=== PATIENT | female | born 1945 | race Caucasian/White ===

== ENCOUNTER → 2020-01-24 15:41 | Outpatient (BNVA) | payer MEDICARE, SELFPAY | PROVIDERS: PCP Internal Medicine; Referring Provider Internal Medicine; Visit Provider Hospitalist | DX: J44.9 Chronic obstructive pulmonary disease, unspecified (principal); J96.11 Chronic respiratory failure with hypoxia; G47.33 Obstructive sleep apnea (adult) (pediatric); R91.1 Solitary pulmonary nodule; F51.01 Primary insomnia; Z99.81 Dependence on supplemental oxygen | CPT/HCPCS: 99212 ==

== ENCOUNTER 2020-05-19 09:38 | Outpatient (REF) | payer MEDICARE, SELFPAY ==
[2020-05-19 11:31] LABS: Estimated Average Glucose 137 mg/dL; Hemoglobin A1c % 6.4 %
[2020-05-19 11:50] LABS: Alanine Aminotransferase 15 U/L (0-31); Albumin Level 4.2 g/dL (3.5-5.0); Alkaline Phosphatase 69 U/L (39-117); Anion Gap 18 (12-20); Aspartate Amino Transferase 14 U/L (5-31); Bilirubin Total 0.4 mg/dL (0.0-1.0); Blood Urea Nitrogen 24 mg/dL (9-16); Calcium 8.5 mg/dL (8.4-10.2); Carbon Dioxide 36 mmol/L (22-29); Chloride 94 mmol/L (96-108); Cholesterol 195 mg/dL; Estimated Glomerular Filt Rate > 60; Glucose Fasting 128 mg/dL (60-99); HDL Cholesterol 49 mg/dL; LDL Cholesterol Calculated 108 mg/dl; Potassium 4.7 mmol/L (3.3-5.1); Sodium 143 mmol/L (135-145); Total Protein 6.8 g/dL (6.5-8.0); Triglycerides 193 mg/dL
[2020-05-19 12:03] LABS: Creatinine Urine 22.27 mg/dL; Microalbumin Urine < 5.0 mg/L
[2020-05-19 12:16] LABS: TSH reflex Free T4 0.08 uIU/mL (0.32-4.0)
[2020-05-19 12:48] LABS: Free T4 (Free Thyroxine) 1.44 ng/dL (0.71-1.85)
== END 2020-05-19 09:39 | disposition home or self-care (01) ==
LOC: HO.HMGCLDS 09:38
PROVIDERS: PCP Internal Medicine; Visit Provider Internal Medicine
DX: E11.9 Type 2 diabetes mellitus without complications (principal); I10 Essential (primary) hypertension; J96.11 Chronic respiratory failure with hypoxia
CPT/HCPCS: 36415; 80053; 80061; 82043; 83036; 84439; 84443

== ENCOUNTER → 2020-07-28 15:59 | Outpatient (BNVA) | payer MEDICARE, SELFPAY | PROVIDERS: PCP Internal Medicine; Visit Provider Hospitalist | DX: J96.11 Chronic respiratory failure with hypoxia (principal); J41.0 Simple chronic bronchitis; F51.01 Primary insomnia; R91.1 Solitary pulmonary nodule | CPT/HCPCS: 99212 ==

== ENCOUNTER 2020-12-04 10:54 | Outpatient (REF) | payer MEDICARE, SELFPAY ==
[2020-12-04 11:54] LABS: MANUAL DIFF FLAG NO
[2020-12-04 12:12] LABS: Basophils Percent Auto 0.4 % (0-2); Eosinophils Absolute Auto 0.5 X10*3/uL (0.0-0.4); Eosinophils Percent Auto 6.3 % (0-4); Hematocrit 37.8 % (37-47); Hemoglobin 11.3 g/dl (12.0-16.0); Imm Gran Abs Auto 0.02 X10*3/uL (0.00-0.03); Imm Gran Pct Auto 0.2 % (0.0-0.4); Lymphocytes Absolute Auto 1.6 X10*3/uL (1.2-4.9); Lymphocytes Percent Auto 19.4 % (20-40); Mean Corpuscular HGB Conc 29.9 g/dl (31.0-35.0); Mean Corpuscular Volume 93.8 fL (80-98); Mean Platelet Volume 12.2 fL (9.4-12.3); Monocytes Absolute Auto 0.6 X10*3/uL (0.1-1.2); Monocytes Percent Auto 7.7 % (2-11); Neutrophils Absolute Auto 5.4 X10*3/uL (2.0-8.3); Platelet Count 185 X10*3/uL (160-400); Red Blood Count 4.03 X10*6/uL (4.20-5.50); White Blood Count 8.1 X10*3/uL (4.8-10.8)
[2020-12-04 12:22] LABS: Estimated Average Glucose 146 mg/dL; Hemoglobin A1C 150.4102 umol/L; Hemoglobin A1c % 6.7 %
[2020-12-04 12:42] LABS: Iron 57 mcg/dL (30-160); Percent Iron Saturation 17 % (15-50); Total Iron Binding Capacity 329 mcg/dL (228-428); Unsaturated Iron Binding 272 ug/dL
[2020-12-04 12:48] LABS: TSH reflex Free T4 2.76 uIU/mL (0.32-4.0)
== END 2020-12-04 10:55 | disposition home or self-care (01) ==
LOC: HO.HMGCLDS 10:54
PROVIDERS: PCP Internal Medicine; Visit Provider Internal Medicine
DX: E11.9 Type 2 diabetes mellitus without complications (principal); I10 Essential (primary) hypertension; J41.0 Simple chronic bronchitis; R91.1 Solitary pulmonary nodule
CPT/HCPCS: 36415; 83036; 83540; 84443; 85025

== ENCOUNTER 2021-04-27 16:00 | Outpatient (REF) | payer MEDICARE, SELFPAY ==
--- NOTE | 2021-04-27 17:31 | PFT_ITS ---
FLOWS: FEV1 45% of predicted at 0.88 L. FVC 57% of predicted at 1.47 L. FEV1 to FVC ratio of 0.60. Positive bronchodilator response. LUNG VOLUMES: Total lung capacity 81% of predicted at 4.01 L. Residual volume 113% of predicted at 2.61 L. Slow vital capacity 53% of predicted at 1.40 L. Expiratory reserve volume 5% of predicted at 0.03 L. Diffusion capacity is moderately decreased, diffusion capacity adjust to being mildly decreased after correction for alveolar ventilation. IMPRESSION: Severe obstructive ventilatory defect with positive bronchodilator response. Decreased expiratory reserve volume suggests extrathoracic restriction, likely secondary to abdominal obesity. Decreased diffusion capacity suggests emphysema. Boby Hodges MD AP/MODL / [id number]
== END 2021-04-27 16:01 | disposition home or self-care (01) ==
LOC: HO.RESP 16:00
PROVIDERS: PCP Internal Medicine; Visit Provider Hospitalist
DX: J96.11 Chronic respiratory failure with hypoxia (principal); J41.0 Simple chronic bronchitis
CPT/HCPCS: 94060; 94727; 94729

== ENCOUNTER → 2021-04-30 15:36 | Outpatient (BNVA) | payer MEDICARE, SELFPAY | PROVIDERS: PCP Internal Medicine; Visit Provider Hospitalist | DX: J41.0 Simple chronic bronchitis (principal); J96.11 Chronic respiratory failure with hypoxia; R91.1 Solitary pulmonary nodule; F51.01 Primary insomnia | CPT/HCPCS: 99212 ==

== ENCOUNTER 2021-05-08 11:17 | Outpatient (REF) | payer MEDICARE, SELFPAY ==
[2021-05-08 14:00] LABS: Hematocrit 36.4 % (37.0-47.0); Mean Corpuscular HGB Conc 30.2 g/dl (31.0-35.0); Mean Corpuscular Hemoglobin 28.9 pg (27.0-33.0); Mean Corpuscular Volume 95.8 fL (80.0-98.0); Platelet Count 180 X10*3/uL (160-400); Red Cell Distribution Width 13.6 % (11.0-16.0); White Blood Count 8.1 X10*3/uL (4.8-10.8)
[2021-05-08 14:10] LABS: Alanine Aminotransferase 10 U/L (0-31); Alkaline Phosphatase 67 U/L (39-117); Anion Gap 13 (12-20); Aspartate Amino Transferase 13 U/L (5-31); Bilirubin Total 0.3 mg/dL (0.0-1.0); Blood Urea Nitrogen 17 mg/dL (9-16); Calcium 8.5 mg/dL (8.4-10.2); Carbon Dioxide 37 mmol/L (22-29); Chloride 97 mmol/L (96-108); Cholesterol 203 mg/dL; Estimated Glomerular Filt Rate 54; Glucose Fasting 145 mg/dL (60-99); HDL Cholesterol 45 mg/dL; LDL Cholesterol Calculated 112 mg/dl; Sodium 142 mmol/L (135-145); Total Protein 7.4 g/dL (6.5-8.0); Triglycerides 230 mg/dL
[2021-05-08 14:24] LABS: Creatinine Urine 16.87 mg/dL; Microalbumin Urine < 5.0 mg/L
[2021-05-08 14:32] LABS: Estimated Average Glucose 148 mg/dL; Hemoglobin A1C 148.7465 umol/L; Hemoglobin A1c % 6.8 %
== END 2021-05-08 11:18 | disposition home or self-care (01) ==
LOC: HO.HMGCLDS 11:17
PROVIDERS: PCP Internal Medicine; Visit Provider Internal Medicine
DX: E11.9 Type 2 diabetes mellitus without complications (principal); I10 Essential (primary) hypertension; J44.9 Chronic obstructive pulmonary disease, unspecified; J96.10 Chronic respiratory failure, unspecified whether with hypoxia or hypercapnia
CPT/HCPCS: 36415; 80053; 80061; 82043; 83036; 85027

== ENCOUNTER → 2021-10-25 14:52 | Outpatient (BNVA) | payer MEDICARE, SELFPAY | PROVIDERS: PCP Internal Medicine; Visit Provider Hospitalist | DX: R91.1 Solitary pulmonary nodule (principal); F51.01 Primary insomnia; J96.11 Chronic respiratory failure with hypoxia; J96.12 Chronic respiratory failure with hypercapnia; J41.0 Simple chronic bronchitis | CPT/HCPCS: 99212 ==

== ENCOUNTER 2021-12-08 09:32 | Outpatient (REF) | payer MEDICARE, SELFPAY ==
[2021-12-08 12:10] LABS: Estimated Average Glucose 166 mg/dL; Hemoglobin A1c % 7.4 %
[2021-12-08 12:19] LABS: Alanine Aminotransferase 16 U/L (0-31); Albumin Level 4.2 g/dL (3.5-5.0); Alkaline Phosphatase 74 U/L (39-117); Anion Gap 17 (12-20); Aspartate Amino Transferase 15 U/L (5-31); Bilirubin Total 0.5 mg/dL (0.0-1.0); Blood Urea Nitrogen 27 mg/dL (9-16); Calcium 8.6 mg/dL (8.4-10.2); Carbon Dioxide 33 mmol/L (22-29); Chloride 97 mmol/L (96-108); Cholesterol 210 mg/dL; Estimated Glomerular Filt Rate 42; Glucose Fasting 153 mg/dL (60-99); HDL Cholesterol 43 mg/dL; LDL Cholesterol Calculated 131 mg/dl; Potassium 5.1 mmol/L (3.3-5.1); Sodium 142 mmol/L (135-145); Total Protein 7.5 g/dL (6.5-8.0); Triglycerides 181 mg/dL
[2021-12-08 12:41] LABS: TSH reflex Free T4 2.49 uIU/mL (0.32-4.0); Vitamin D 25-OH Total 49.5 ng/mL (>30)
== END 2021-12-08 09:33 | disposition home or self-care (01) ==
LOC: HO.HMGCLDS 09:32
PROVIDERS: PCP Internal Medicine; Visit Provider Internal Medicine
DX: E11.9 Type 2 diabetes mellitus without complications (principal); I10 Essential (primary) hypertension; J41.0 Simple chronic bronchitis
CPT/HCPCS: 36415; 80053; 80061; 82306; 83036; 84443

== ENCOUNTER 2021-12-25 08:40 | Outpatient (REF) | payer MEDICARE, SELFPAY ==
[2021-12-25 12:23] LABS: Anion Gap 15 (12-20); Blood Urea Nitrogen 18 mg/dL (9-16); Calcium 8.8 mg/dL (8.4-10.2); Carbon Dioxide 34 mmol/L (22-29); Chloride 97 mmol/L (96-108); Estimated Glomerular Filt Rate 51; Glucose Random 147 mg/dL (60-115); Potassium 5.1 mmol/L (3.3-5.1); Sodium 141 mmol/L (135-145)
== END 2021-12-25 08:41 | disposition home or self-care (01) ==
LOC: HO.HMGCLDS 08:40
PROVIDERS: PCP Internal Medicine; Visit Provider Internal Medicine
DX: N18.30 Chronic kidney disease, stage 3 unspecified (principal)
CPT/HCPCS: 36415; 80048

== ENCOUNTER 2022-02-19 12:21 | Outpatient (REF) | payer MEDICARE, SELFPAY ==
[2022-02-19 13:56] LABS: Appearance Urine Clear; Color Urine Yellow; Glucose Urine UA Negative (Negative); Leukocyte Esterase Urine Small (1+) (Negative); Nitrite Urine Negative (Negative); UMIC TRIGGER UACC YES; Urine Blood Negative (Negative); Urine Ketones Negative (Negative); Urine Protein Negative (Neg-Trace)
[2022-02-19 14:05] LABS: Bacteria Urine None Seen (None Seen); Hyaline Casts Urine 0-2 /LPF (0-2); RBC Urine 0-2 /HPF (0-2); Squamous Epithelial Cell Urine 0-2 /HPF (0-2); UACC Culture Trigger YES; WBC Urine 0-5 /HPF (0-5)
== END 2022-02-19 12:22 | disposition home or self-care (01) ==
LOC: HO.HMGCLDS 12:21
PROVIDERS: PCP Internal Medicine; Visit Provider Internal Medicine
DX: M54.50 Low back pain, unspecified (principal); R82.90 Unspecified abnormal findings in urine
CPT/HCPCS: 81001; 87086

== ENCOUNTER 2022-03-09 09:46 | Outpatient (REF) | payer MEDICARE, SELFPAY ==
[2022-03-09 11:09] LABS: MANUAL DIFF FLAG NO
[2022-03-09 11:15] LABS: Basophils Percent Auto 0.4 % (0-2); Eosinophils Absolute Auto 0.2 X10*3/uL (0.0-0.4); Eosinophils Percent Auto 2.5 % (0-4); Hematocrit 34.8 % (37.0-47.0); Hemoglobin 10.3 g/dl (12.0-16.0); Imm Gran Abs Auto 0.02 X10*3/uL (0.00-0.03); Imm Gran Pct Auto 0.3 % (0.0-0.4); Lymphocytes Absolute Auto 1.6 X10*3/uL (1.2-4.9); Lymphocytes Percent Auto 22.1 % (20-40); Mean Corpuscular HGB Conc 29.6 g/dl (31.0-35.0); Mean Corpuscular Hemoglobin 28.1 pg (27.0-33.0); Mean Corpuscular Volume 94.8 fL (80.0-98.0); Mean Platelet Volume 12.6 fL (9.4-12.3); Monocytes Absolute Auto 0.5 X10*3/uL (0.1-1.2); Monocytes Percent Auto 6.8 % (2-11); Neutrophils Absolute Auto 4.9 x10*3/uL (2.0-8.3); Neutrophils Percent Auto 67.9 % (45-73); Platelet Count 196 X10*3/uL (160-400); Red Blood Count 3.67 X10*6/uL (4.20-5.50); Red Cell Distribution Width 13.7 % (11.0-16.0); White Blood Count 7.2 X10*3/uL (4.8-10.8)
[2022-03-09 11:31] LABS: Estimated Average Glucose 154 mg/dL
[2022-03-09 11:45] LABS: Alanine Aminotransferase 16 U/L (0-31); Alkaline Phosphatase 76 U/L (39-117); Anion Gap 10 (12-20); Aspartate Amino Transferase 12 U/L (5-31); Bilirubin Total 0.4 mg/dL (0.0-1.0); Blood Urea Nitrogen 22 mg/dL (9-16); Calcium 8.6 mg/dL (8.4-10.2); Carbon Dioxide 36 mmol/L (22-29); Chloride 100 mmol/L (96-108); Estimated Glomerular Filt Rate 47; Glucose Fasting 155 mg/dL (60-99); Potassium 4.6 mmol/L (3.3-5.1); Sodium 141 mmol/L (135-145); Total Protein 7.2 g/dL (6.5-8.0)
[2022-03-09 12:04] LABS: TSH reflex Free T4 2.58 uIU/mL (0.32-4.0)
[2022-03-09 13:55] LABS: Creatinine Urine 175.72 mg/dL; Microalbum/Creatinine Ratio Ur 5.1 ug/mg cr
== END 2022-03-09 09:47 | disposition home or self-care (01) ==
LOC: HO.HMGCLDS 09:46
PROVIDERS: PCP Internal Medicine; Visit Provider Internal Medicine
DX: I12.9 Hypertensive chronic kidney disease with stage 1 through stage 4 chronic kidney disease, or unspecified chronic kidney disease (principal); E11.22 Type 2 diabetes mellitus with diabetic chronic kidney disease; N18.30 Chronic kidney disease, stage 3 unspecified; E78.5 Hyperlipidemia, unspecified
CPT/HCPCS: 36415; 80053; 82043; 83036; 84443; 85025

== ENCOUNTER 2022-03-12 13:09 | Outpatient (REF) | payer MEDICARE, SELFPAY ==
[2022-03-12 15:48] LABS: Iron 57 mcg/dL (30-160); Percent Iron Saturation 20 % (15-50); Total Iron Binding Capacity 284 mcg/dL (228-428); Unsaturated Iron Binding 227 ug/dL
[2022-03-12 17:47] LABS: Folate 11.3 ng/mL (> or = 4.0); Vitamin B12 758 pg/mL (200-900)
== END 2022-03-12 13:10 | disposition home or self-care (01) ==
LOC: HO.HMGCLDS 13:09
PROVIDERS: PCP Internal Medicine; Visit Provider Internal Medicine
DX: D64.9 Anemia, unspecified (principal)
CPT/HCPCS: 36415; 82607; 82746; 83540

== ENCOUNTER 2022-07-05 13:17 | Outpatient (REF) | payer MEDICARE, SELFPAY ==
[2022-07-05 13:48] LABS: ABG Refer to POC result
[2022-07-05 14:15] LABS: ABG Base Excess 11.2 mmol/L; ABG HCO3 36 mmol/L (22-26); ABG pCO2 51 mmHg (32-45); ABG pH 7.46 (7.35-7.45); ABG pO2 74 mmHg (83-108)
== END 2022-07-05 13:18 | disposition home or self-care (01) ==
LOC: HO.LAB 13:17
PROVIDERS: PCP Internal Medicine; Visit Provider Hospitalist
DX: J44.9 Chronic obstructive pulmonary disease, unspecified (principal); R91.1 Solitary pulmonary nodule; F51.01 Primary insomnia; J96.11 Chronic respiratory failure with hypoxia; J96.12 Chronic respiratory failure with hypercapnia
CPT/HCPCS: 82803; 99212

== ENCOUNTER 2022-07-23 09:23 | Outpatient (REF) | payer MEDICARE, SELFPAY ==
[2022-07-23 11:08] LABS: MANUAL DIFF FLAG NO
[2022-07-23 11:38] LABS: Estimated Average Glucose 154 mg/dL
[2022-07-23 12:01] LABS: Basophils Percent Auto 0.5 % (0-2); Eosinophils Absolute Auto 0.3 X10*3/uL (0.0-0.4); Eosinophils Percent Auto 3.3 % (0-4); Hematocrit 33.9 % (37.0-47.0); Hemoglobin 10.2 g/dl (12.0-16.0); Imm Gran Abs Auto 0.03 X10*3/uL (0.00-0.03); Imm Gran Pct Auto 0.4 % (0.0-0.4); Lymphocytes Absolute Auto 1.9 X10*3/uL (1.2-4.9); Lymphocytes Percent Auto 22.5 % (20-40); Mean Corpuscular HGB Conc 30.1 g/dl (31.0-35.0); Mean Corpuscular Hemoglobin 28.2 pg (27.0-33.0); Mean Corpuscular Volume 93.6 fL (80.0-98.0); Mean Platelet Volume 11.9 fL (9.4-12.3); Monocytes Absolute Auto 0.7 X10*3/uL (0.1-1.2); Monocytes Percent Auto 8.4 % (2-11); Neutrophils Absolute Auto 5.4 x10*3/uL (2.0-8.3); Neutrophils Percent Auto 64.9 % (45-73); Platelet Count 227 X10*3/uL (160-400); Red Blood Count 3.62 X10*6/uL (4.20-5.50); Red Cell Distribution Width 14.1 % (11.0-16.0); White Blood Count 8.4 X10*3/uL (4.8-10.8)
[2022-07-23 12:13] LABS: Alanine Aminotransferase 15 U/L (0-31); Albumin Level 3.9 g/dL (3.5-5.0); Alkaline Phosphatase 66 U/L (39-117); Anion Gap 14 (12-20); Aspartate Amino Transferase 12 U/L (5-31); Bilirubin Total 0.5 mg/dL (0.0-1.0); Blood Urea Nitrogen 28 mg/dL (9-16); Calcium 8.4 mg/dL (8.4-10.2); Carbon Dioxide 34 mmol/L (22-29); Chloride 97 mmol/L (96-108); Cholesterol 191 mg/dL; Estimated Glomerular Filt Rate 44; Glucose Fasting 181 mg/dL (60-99); HDL Cholesterol 47 mg/dL; LDL Cholesterol Calculated 105 mg/dl; Potassium 4.6 mmol/L (3.3-5.1); Sodium 140 mmol/L (135-145); Total Protein 7.2 g/dL (6.5-8.0); Triglycerides 198 mg/dL
[2022-07-23 13:20] LABS: Free T4 (Free Thyroxine) 1.13 ng/dL (0.71-1.85)
== END 2022-07-23 09:24 | disposition home or self-care (01) ==
LOC: HO.HMGCLDS 09:23
PROVIDERS: PCP Internal Medicine; Visit Provider Internal Medicine
DX: E11.22 Type 2 diabetes mellitus with diabetic chronic kidney disease (principal); N18.30 Chronic kidney disease, stage 3 unspecified; I12.9 Hypertensive chronic kidney disease with stage 1 through stage 4 chronic kidney disease, or unspecified chronic kidney disease; D63.1 Anemia in chronic kidney disease
CPT/HCPCS: 36415; 80053; 80061; 83036; 84439; 84443; 85025

== ENCOUNTER 2023-01-08 08:49 | Outpatient (REF) | payer MEDICARE, SELFPAY ==
[2023-01-08 11:20] LABS: MANUAL DIFF FLAG NO
[2023-01-08 12:05] LABS: Alanine Aminotransferase 13 U/L (0-31); Albumin Level 3.9 g/dL (3.5-5.0); Alkaline Phosphatase 72 U/L (39-117); Anion Gap 11 (12-20); Aspartate Amino Transferase 14 U/L (5-31); Basophils Percent Auto 0.4 % (0-2); Bilirubin Total 0.4 mg/dL (0.0-1.0); Blood Urea Nitrogen 22 mg/dL (9-16); Carbon Dioxide 38 mmol/L (22-29); Chloride 98 mmol/L (96-108); Eosinophils Absolute Auto 0.3 X10*3/uL (0.0-0.4); Estimated Glomerular Filt Rate 50; Glucose Fasting 163 mg/dL (60-99); Hematocrit 35.5 % (37.0-47.0); Hemoglobin 10.8 g/dl (12.0-16.0); Imm Gran Abs Auto 0.03 X10*3/uL (0.00-0.03); Imm Gran Pct Auto 0.4 % (0.0-0.4); Lymphocytes Absolute Auto 2.1 X10*3/uL (1.2-4.9); Lymphocytes Percent Auto 25.1 % (20-40); Mean Corpuscular HGB Conc 30.4 g/dl (31.0-35.0); Mean Corpuscular Hemoglobin 28.2 pg (27.0-33.0); Mean Corpuscular Volume 92.7 fL (80.0-98.0); Mean Platelet Volume 12.2 fL (9.4-12.3); Monocytes Absolute Auto 0.7 X10*3/uL (0.1-1.2); Monocytes Percent Auto 7.9 % (2-11); Neutrophils Absolute Auto 5.3 x10*3/uL (2.0-8.3); Neutrophils Percent Auto 62.2 % (45-73); Platelet Count 206 X10*3/uL (160-400); Potassium 5.1 mmol/L (3.3-5.1); Red Blood Count 3.83 X10*6/uL (4.20-5.50); Red Cell Distribution Width 14.3 % (11.0-16.0); Sodium 142 mmol/L (135-145); Total Protein 7.5 g/dL (6.5-8.0); White Blood Count 8.5 X10*3/uL (4.8-10.8)
[2023-01-08 12:14] LABS: Estimated Average Glucose 166 mg/dL; Hemoglobin A1c % 7.4 % (<6.0)
[2023-01-08 12:24] LABS: Creatinine Urine 17.55 mg/dL; Microalbumin Urine < 5.0 mg/L
== END 2023-01-08 08:50 | disposition home or self-care (01) ==
LOC: HO.HMGCLDS 08:49
PROVIDERS: PCP Internal Medicine; Visit Provider Internal Medicine
DX: E11.22 Type 2 diabetes mellitus with diabetic chronic kidney disease (principal); I12.9 Hypertensive chronic kidney disease with stage 1 through stage 4 chronic kidney disease, or unspecified chronic kidney disease; N18.30 Chronic kidney disease, stage 3 unspecified; E78.5 Hyperlipidemia, unspecified
CPT/HCPCS: 36415; 80053; 82043; 82570; 83036; 85025

== ENCOUNTER 2023-01-10 10:15 | Outpatient (AMB) | payer MEDICARE, SELFPAY ==
--- NOTE | 2023-01-10 10:24 | A.OFFPC_ITS ---
Vital Signs 01/10/23 10:28 Height 5 ft 3 in Weight 215 lb BMI 38.1 BP 120/70 Blood Pressure Location Rt brachial Position Sitting Pulse 65 Pulse Source Pulse Oximeter Pulse Oximetry (%) 93 Oxygen Delivery Method Nasal Cannula Intake Visit Reasons: Physical exam Intake Note: Pt is here today for her PE Allergies No Known Allergies Allergy (Verified 01/10/23 10:25) Tobacco use date assessed: 01/10/23 Last assessed Fall Risk: 01/10/23 Dental Screening Dental Screen Date: 01/10/23 HPI Physical exam HPI Details Patient presents for physical PFSH Medical History Annual physical exam Hypoxia Hypothyroid Hyperlipidemia Overweight DM type 2 (diabetes mellitus, type 2) Pulmonary nodule Insomnia Chronic respiratory failure COPD (chronic obstructive pulmonary disease) Surgical History H/O colonoscopy Family History Father No problems noted. Mother Stroke Social History Housing: House Alcohol intake: never Patient Tobacco Use Status: Never used Tobacco e-Cigarette/Vaping Use: Never Used Current occupational status: retired Cognitive needs: No Hearing needs: No Vision needs: Yes Questionnaire Thrive Questionnaire Date Thrive assessed: 03/12/22 UNRULY-7 AMB Questionnaire UNRULY-7 Date UNRULY - 7 assessed: 03/12/22 Source: Developed by Drs. Srinivasa Hassan, Oriana Mercado, Florentin Díaz and colleagues, with an educational caryl from [employer]. Review of Systems Const All systems reviewed & are unremarkable except as noted in HPI and below Reports no additional complaints Eyes Reports no additional complaints ENT Reports no additional complaints Card Reports no additional complaints Resp Reports no additional complaints GI Reports no additional complaints Reports no additional complaints Musc Reports no additional complaints Physical exam (Primary Care) Vital Signs: Last Vital Signs Pulse 65 01/10/23 10:28 BP 136/70 01/10/23 10:28 Pulse Ox 93 01/10/23 10:28 Oxygen Delivery Method Nasal Cannula 01/10/23 10:28 BMI result Body Mass Index 38.1 Tobacco/Smoking Status: Tobacco use Status Tobacco use date assessed 01/10/23 01/10/23 10:25 Patient Tobacco Use Status Never used Tobacco 01/10/23 10:25 e-Cigarette/Vaping Use Never Used 01/10/23 10:25 Thrive Assessment: Date of Thrive Assessment Date Thrive assessed 03/12/22 01/10/23 10:25 Const General: no acute distress HENMT Head: Yes normal to inspection Ears: hearing grossly normal bilaterally Face and sinus: Yes normal facial exam Eyes General: appearance normal, both eyes and all related structures Neck Neck: Yes no lymphadenopathy and Yes supple Resp Effort & Inspection: normal respiratory effort Auscultation: diminished lung sounds Cardio Rhythm: regular rhythm Heart sounds: S1 normal heart sound present and S2 normal heart sound present GI Inspection: Yes normal to inspection Palpation (GI): Soft to palpation Percussion: Yes normal to percussion Extrem General: Yes no clubbing, cyanosis or edema Assessment and Plan Assessment & Plan (1) DM type 2 (diabetes mellitus, type 2): Comment: Patient could not tolerate more than 850 mg of metformin because of diarrhea, hypoglycemia on glipizide Code(s): E11.9 - Type 2 diabetes mellitus without complications Plan: A1c is 7.2, ADA diet increase exercise weight loss discussed with the patient. Ozempic 0.25 mg weekly will be added to metformin (2) Hyperlipidemia: Code(s): E78.5 - Hyperlipidemia, unspecified Plan: Continue statin (3) COPD (chronic obstructive pulmonary disease): Code(s): J44.9 - Chronic obstructive pulmonary disease, unspecified Qualifiers: COPD type: chronic bronchitis Chronic bronchitis type: simple Qualified Code(s): J41.0 - Simple chronic bronchitis Plan: Continue Anoro and albuterol inhaler (4) CKD (chronic kidney disease) stage 3, GFR 30-59 ml/min: Code(s): N18.30 - Chronic kidney disease, stage 3 unspecified Plan: Monitor renal function (5) Chronic respiratory failure: Comment: Hypoventilation due to morbid obesity, on 24 hours supplemental O2. Patient could not tolerate CPAP, follow-up with pulmonology Code(s): J96.10 - Chronic respiratory failure, unspecified whether with hypoxia or hypercapnia Qualifiers: Respiratory failure complication: hypoxia and hypercapnia Qualified Code(s): J96.11 - Chronic respiratory failure with hypoxia; J96.12 - Chronic respiratory failure with hypercapnia Plan: Patient retaining more CO2. She could not tolerate CPAP and has been using supplemental O2 adjusting to activity and O2 sat. Weight loss discussed with the patient. She will try Ozempic for diabetes and facilitate weight loss. 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 (6) Hypertension: Code(s): I10 - Essential (primary) hypertension Plan: Continue current medications (7) Annual physical exam: Code(s): Z00.00 - Encounter for general adult medical examination without abnormal findings Orders: Orders Hemoglobin A1c 4 Months E11.9 - Type 2 diabetes mellitus without complications, E78.5 - Hyperlipidemia, unspecified, I10 - Essential (primary) hypertension, N18.30 - Chronic kidney disease, stage 3 unspecified Complete Blood Count Auto Diff 4 Months E11.9 - Type 2 diabetes mellitus without complications, E78.5 - Hyperlipidemia, unspecified, I10 - Essential (primary) hypertension, N18.30 - Chronic kidney disease, stage 3 unspecified Lipid Panel 4 Months E11.9 - Type 2 diabetes mellitus without complications, E78.5 - Hyperlipidemia, unspecified, I10 - Essential (primary) hypertension, N18.30 - Chronic kidney disease, stage 3 unspecified TSH reflex Free T4 4 Months E11.9 - Type 2 diabetes mellitus without complications, E78.5 - Hyperlipidemia, unspecified, I10 - Essential (primary) hypertension, N18.30 - Chronic kidney disease, stage 3 unspecified Microalbumin, Random (w Creat) 4 Months E11.9 - Type 2 diabetes mellitus without complications, E78.5 - Hyperlipidemia, unspecified, I10 - Essential (primary) hypertension, N18.30 - Chronic kidney disease, stage 3 unspecified Comprehensive [place]. Panel Fast 4 Months E11.9 - Type 2 diabetes mellitus without complications, E78.5 - Hyperlipidemia, unspecified, J44.9 - Chronic obstructive pulmonary disease, unspecified, N18.30 - Chronic kidney disease, stage 3 unspecified Medications: New semaglutide (Ozempic) 0.25 mg (0.368 mL) subcut QWEEK 9 mL 1RF Refilled calcitriol 0.25 mcg PO DAILY 90 caps 3RF furosemide 40 mg PO DAILY 90 tabs 3RF metoprolol succinate ER 50 mg PO DAILY 90 tabs 3RF I10 - Essential (primary) hypertension albuterol sulfate 0.63 mg (3 mL) inhalation Q6H 90 mL 3RF atorvastatin 40 mg PO DAILY 90 tabs 3RF levothyroxine 125 mcg PO DAILY 90 tabs 3RF lisinopril 10 mg PO DAILY 90 tabs 3RF metformin 850 mg PO DAILY 90 tabs 3RF umeclidinium-vilanterol 62.5-25 mcg/actuation (Anoro Ellipta) 1 inh inhalation DAILY 60 ea 11RF J44.9 - Chronic obstructive pulmonary disease, unspecified Coding Level of Care Code Est Pt Prev Care >65y(98797) Diagnoses DM type 2 (diabetes mellitus, type 2) E11.9 Hyperlipidemia E78.5 Simple chronic bronchitis J41.0 COPD type: chronic bronchitis Chronic bronchitis type: simple CKD (chronic kidney disease) stage 3, GFR 30-59 ml/min N18.30 Chronic respiratory failure with hypoxia and hypercapnia J96.11; J96.12 Respiratory failure complication: hypoxia and hypercapnia Hypertension I10 Annual physical exam Z00.00
[2023-01-10 10:28] VITALS: BP 120/70; PULSE 65; O2SAT 93; BMI 38.1
== END 2023-01-10 11:24 | disposition home or self-care (01) ==
LOC: HO.HMGC 10:15
PROVIDERS: PCP Internal Medicine; Visit Provider Internal Medicine
DX: Z00.00 Encounter for general adult medical examination without abnormal findings (principal); E11.22 Type 2 diabetes mellitus with diabetic chronic kidney disease; J41.0 Simple chronic bronchitis; N18.30 Chronic kidney disease, stage 3 unspecified; J96.11 Chronic respiratory failure with hypoxia; J96.12 Chronic respiratory failure with hypercapnia; E78.5 Hyperlipidemia, unspecified; I12.9 Hypertensive chronic kidney disease with stage 1 through stage 4 chronic kidney disease, or unspecified chronic kidney disease
CPT/HCPCS: 99397

== ENCOUNTER 2023-07-09 09:33 | Outpatient (REF) | payer MEDICARE, SELFPAY ==
[2023-07-09 13:24] LABS: MANUAL DIFF FLAG NO
[2023-07-09 13:28] LABS: Basophils Percent Auto 0.4 % (0-2); Eosinophils Absolute Auto 0.2 X10*3/uL (0.0-0.4); Eosinophils Percent Auto 3.1 % (0-4); Hematocrit 33.9 % (37.0-47.0); Hemoglobin 10.2 g/dl (12.0-16.0); Imm Gran Abs Auto 0.02 X10*3/uL (0.00-0.03); Imm Gran Pct Auto 0.3 % (0.0-0.4); Lymphocytes Absolute Auto 1.4 X10*3/uL (1.2-4.9); Lymphocytes Percent Auto 19.6 % (20-40); Mean Corpuscular HGB Conc 30.1 g/dl (31.0-35.0); Mean Corpuscular Hemoglobin 28.3 pg (27.0-33.0); Mean Corpuscular Volume 94.2 fL (80.0-98.0); Mean Platelet Volume 11.8 fL (9.4-12.3); Monocytes Absolute Auto 0.6 X10*3/uL (0.1-1.2); Monocytes Percent Auto 8.3 % (2-11); Neutrophils Percent Auto 68.3 % (45-73); Platelet Count 207 X10*3/uL (160-400); Red Cell Distribution Width 14.1 % (11.0-16.0); White Blood Count 7.3 X10*3/uL (4.8-10.8)
[2023-07-09 13:37] LABS: Estimated Average Glucose 169 mg/dL; Hemoglobin A1c % 7.5 % (<6.0)
[2023-07-09 13:45] LABS: Alanine Aminotransferase 12 U/L (0-31); Albumin Level 3.8 g/dL (3.5-5.0); Alkaline Phosphatase 66 U/L (39-117); Anion Gap 13 (12-20); Aspartate Amino Transferase 11 U/L (5-31); Bilirubin Total 0.3 mg/dL (0.0-1.0); Blood Urea Nitrogen 28 mg/dL (9-16); Calcium 8.5 mg/dL (8.4-10.2); Carbon Dioxide 33 mmol/L (22-29); Chloride 101 mmol/L (96-108); Cholesterol 190 mg/dL (<200); Estimated Glomerular Filt Rate 46; Glucose Fasting 158 mg/dL (60-99); HDL Cholesterol 43 mg/dL (>40); LDL Cholesterol Calculated 110 mg/dL (<100); Potassium 4.6 mmol/L (3.3-5.1); Sodium 142 mmol/L (135-145); Total Protein 7.4 g/dL (6.5-8.0); Triglycerides 187 mg/dL (<150)
[2023-07-09 14:02] LABS: TSH reflex Free T4 0.52 uIU/mL (0.32-4.0)
[2023-07-09 14:24] LABS: Creatinine Urine 24.93 mg/dL; Microalbumin Urine < 5.0 mg/L
== END 2023-07-09 09:34 | disposition home or self-care (01) ==
LOC: HO.HMGCLDS 09:33
PROVIDERS: PCP Internal Medicine; Visit Provider Internal Medicine
DX: I12.9 Hypertensive chronic kidney disease with stage 1 through stage 4 chronic kidney disease, or unspecified chronic kidney disease (principal); N18.30 Chronic kidney disease, stage 3 unspecified; E11.9 Type 2 diabetes mellitus without complications; E78.5 Hyperlipidemia, unspecified; J44.9 Chronic obstructive pulmonary disease, unspecified
CPT/HCPCS: 36415; 80053; 80061; 82043; 82570; 83036; 84443; 85025

== ENCOUNTER 2023-07-11 10:59 | Outpatient (AMB) | payer MEDICARE, SELFPAY ==
[2023-07-11 11:48] VITALS: BP 132/74; PULSE 64; O2SAT 95; BMI 38.3
--- NOTE | 2023-07-11 11:48 | A.OFFPC_ITS ---
Vital Signs 07/11/23 11:48 Height 5 ft 3 in Weight 216 lb BMI 38.3 BP 132/74 Blood Pressure Location Rt brachial Position Sitting Pulse 64 Pulse Source Pulse Oximeter Pulse Oximetry (%) 95 Oxygen Delivery Method Room Air Intake Visit Reasons: 6 Month F/U Intake Note: Pt is here today for a follow up visit on labs. Allergies No Known Allergies Allergy (Verified 07/11/23 11:58) Medication List - Last Reconciled 07/11/23 by Yecenia Lerma MD albuterol sulfate 0.63 mg (3 mL) inhalation Q6H albuterol sulfate 90 mcg/actuation (ProAir HFA) 2 puffs inhalation Q6H PRN atorvastatin 40 mg PO DAILY calcitriol 0.25 mcg PO DAILY furosemide 40 mg PO DAILY levothyroxine 125 mcg PO DAILY lisinopril 10 mg PO DAILY metformin 850 mg PO DAILY metoprolol succinate ER 50 mg PO DAILY miscellaneous medical supply 1 pair diabetic shoes as directed; nebulizers As directed Oxygen Home Use As directed semaglutide (Ozempic) 0.25 mg (0.368 mL) subcut QWEEK umeclidinium-vilanterol 62.5-25 mcg/actuation (Anoro Ellipta) 1 inh inhalation DAILY Tobacco use date assessed: 07/11/23 Fall risk assessment: No Falls in past year Last assessed Fall Risk: 07/11/23 Dental Screening Dental Screen Date: 07/11/23 Did you have a dental visit in the last 12 months?: No Did you have a dental problem in the last 6 months where you did not have access to dental care?: No Was dental information given to patient?: Patient declined HPI 6 Month F/U HPI Details Pt presents for f/u DM2, COPD, hyperlipid, stable on meds. [facility] Medical History Annual physical exam Hypoxia Hypothyroid Hyperlipidemia Overweight DM type 2 (diabetes mellitus, type 2) Pulmonary nodule Insomnia Chronic respiratory failure COPD (chronic obstructive pulmonary disease) Surgical History H/O colonoscopy Family History Father No problems noted. Mother Stroke Social History Housing: House Alcohol intake: never Patient Tobacco Use Status: Never used Tobacco e-Cigarette/Vaping Use: Never Used service: No Current occupational status: retired Cognitive needs: No Hearing needs: No Vision needs: Yes Questionnaire PHQ-9 Over the last 2 weeks, how often have you been bothered by any of the following problems? 1. Little interest or pleasure in doing things: not at all 2. Feeling down, depressed, or hopeless: not at all 3. Trouble falling or staying asleep, or sleeping too much: not at all 4. Feeling tired or having little energy: not at all 5. Poor appetite or overeating: not at all 6. Feeling bad about yourself - or that you are a failure or have let yourself or your family down: not at all 7. Trouble concentrating on things, such as reading the newspaper or watching television: not at all 8. Moving or speaking so slowly that other people could have noticed. Or the opposite - being so fidgety or restless that you have been moving around a lot more than usual: not at all 9. Thoughts that you would be better off or of hurting yourself in some way: not at all Total score: 0 Depression Screening Interpretation: Negative Depression Screening Done: Yes Source: Developed by Drs. Srinivasa Hassan, Oriana Mercado, Florentin Díaz and colleagues, with an educational caryl from [employer] Thrive Questionnaire Date Thrive assessed: 07/11/23 I am a: Patient What is your living situation today?: I have a steady place to live Within the past 12 months, did the food you bought not last and you didn't have the money to get more?: Never true Within the past 12 months, did you worry whether your food would run out before you got money to buy more?: Never true Do you have trouble paying for medicines?: No Do you have trouble getting transportation to medical appointments?: No Do you have trouble paying your heating and electricity bill?: No Do you have trouble taking care of your child, family member or friend?: No Do you have trouble with day-to-day activities such as bathing, preparing meals, shopping, managing finances, etc.?: No Are you currently unemployed and looking for a job?: No Are you interested in more education?: No Please select the resources that you would like help with: None THRIVE Score: 0 AUDIT C Alcohol Use Questionnaire (AUDIT-C) 1. How often do you have a drink containing alcohol?: Never 3. How often do you have six or more drinks on one occasion?: Never Total Score: 0 UNRULY-7 AMB Questionnaire UNRULY-7 Date UNRULY - 7 assessed: 07/11/23 Feeling nervous, anxious, or on edge: 0 = Not at all Not being able to stop or control worryin = Not at all Worrying too much about different things: 0 = Not at all Trouble relaxin = Not at all Being so restless that it is hard to sit still: 0 = Not at all Becoming easily annoyed or irritable: 0 = Not at all Feeling afraid as if something awful might happen: 0 = Not at all Total UNRULY-7 score (0-4 normal; 5-9 mild; 10-14 moderate; 15-21 severe): 0 Source: Developed by Drs. Srinivasa Hassan, Oriana Mercado, Florentin Díaz and colleagues, with an educational caryl from [employer]. Review of Systems Const All systems reviewed & are unremarkable except as noted in HPI and below Eyes Reports no additional complaints ENT Reports no additional complaints Card Reports no additional complaints Resp Reports no additional complaints GI Reports no additional complaints Reports no additional complaints Physical exam (Primary Care) Vital Signs: Last Vital Signs Pulse 64 07/11/23 11:48 BP 132/74 07/11/23 11:48 Pulse Ox 95 07/11/23 11:48 Oxygen Delivery Method Room Air 07/11/23 11:48 BMI result Body Mass Index 38.3 Tobacco/Smoking Status: Tobacco use Status Tobacco use date assessed 07/11/23 07/11/23 12:02 Patient Tobacco Use Status Never used Tobacco 07/11/23 11:48 e-Cigarette/Vaping Use Never Used 07/11/23 11:48 PHQ-9: PHQ-9 Score PHQ-9: Total score 0 07/11/23 12:02 Depression Screening Interpretation: Negative Thrive Assessment: Date of Thrive Assessment Date Thrive assessed 07/11/23 07/11/23 12:02 Const General: no acute distress HENMT Head: Yes normal to inspection Eyes General: appearance normal, both eyes and all related structures Neck Neck: Yes supple Resp Effort & Inspection: normal respiratory effort Auscultation: diminished lung sounds Cardio Rhythm: regular rhythm Heart sounds: S1 normal heart sound present and S2 normal heart sound present GI Inspection: Yes normal to inspection Palpation (GI): Soft to palpation Percussion: Yes normal to percussion Assessment and Plan Assessment & Plan (1) COPD (chronic obstructive pulmonary disease): Code(s): J44.9 - Chronic obstructive pulmonary disease, unspecified Qualifiers: COPD type: chronic bronchitis Chronic bronchitis type: simple Qualified Code(s): J41.0 - Simple chronic bronchitis Plan: Continue Anoro supplemental O2 follow-up with pulmonology (2) Chronic respiratory failure: Comment: Hypoventilation due to morbid obesity, on 24 hours supplemental O2. Patient could not tolerate CPAP, follow-up with pulmonology Code(s): J96.10 - Chronic respiratory failure, unspecified whether with hypoxia or hypercapnia Qualifiers: Respiratory failure complication: hypoxia and hypercapnia Qualified Code(s): J96.11 - Chronic respiratory failure with hypoxia; J96.12 - Chronic respiratory failure with hypercapnia Plan: Continue supplemental O2 weight loss discussed with the patient (3) DM type 2 (diabetes mellitus, type 2): Comment: Patient could not tolerate more than 850 mg of metformin because of diarrhea, hypoglycemia on glipizide Code(s): E11.9 - Type 2 diabetes mellitus without complications Plan: A1c is 7.9, ADA diet increase physical activity weight loss discussed with the patient she decided not to try Ozempic. Patient will continue metformin follow- up in 4 months with a fasting labs before (4) Hyperlipidemia: Code(s): E78.5 - Hyperlipidemia, unspecified Plan: Continue statin (5) CKD (chronic kidney disease) stage 3, GFR 30-59 ml/min: Code(s): N18.30 - Chronic kidney disease, stage 3 unspecified Plan: Avoid nephrotoxins monitor renal function (6) Anemia: Code(s): D64.9 - Anemia, unspecified Plan: Check iron and B12 level Orders: Orders Lipid Panel 4 Months E11.9 - Type 2 diabetes mellitus without complications, E78.5 - Hyperlipidemia, unspecified, J41.0 - Simple chronic bronchitis, N18.30 - Chronic kidney disease, stage 3 unspecified IRON PROFILE Today D64.9 - Anemia, unspecified, E11.9 - Type 2 diabetes mellitus without complications, E78.5 - Hyperlipidemia, unspecified, J41.0 - Simple chronic bronchitis, J96.11 - Chronic respiratory failure with hypoxia, J96.12 - Chronic respiratory failure with hypercapnia, N18.30 - Chronic kidney disease, stage 3 unspecified Vitamin B12 and Folate Today D64.9 - Anemia, unspecified Comprehensive [place]. Panel Fast 4 Months E11.9 - Type 2 diabetes mellitus without complications, E78.5 - Hyperlipidemia, unspecified, J41.0 - Simple chronic bronchitis, N18.30 - Chronic kidney disease, stage 3 unspecified Complete Blood Count Auto Diff 4 Months E11.9 - Type 2 diabetes mellitus without complications, E78.5 - Hyperlipidemia, unspecified, J41.0 - Simple chronic bronchitis, N18.30 - Chronic kidney disease, stage 3 unspecified Hemoglobin A1c 4 Months E11.9 - Type 2 diabetes mellitus without complications, E78.5 - Hyperlipidemia, unspecified, J41.0 - Simple chronic bronchitis, N18.30 - Chronic kidney disease, stage 3 unspecified Medications: New blood sugar diagnostic ([employer] Ultra Test strips) 1 bid 100 ea 3RF Discontinued semaglutide (Ozempic) Discontinued Reason: Doctor's Order 0.25 mg (0.368 mL) subcut QWEEK 9 mL 1RF Coding Level of Care Code Est Pt Level 4 (43120) Diagnoses Simple chronic bronchitis J41.0 COPD type: chronic bronchitis Chronic bronchitis type: simple Chronic respiratory failure with hypoxia and hypercapnia J96.11; J96.12 Respiratory failure complication: hypoxia and hypercapnia DM type 2 (diabetes mellitus, type 2) E11.9 Hyperlipidemia E78.5 CKD (chronic kidney disease) stage 3, GFR 30-59 ml/min N18.30 Anemia D64.9
== END 2023-07-11 12:46 | disposition home or self-care (01) ==
PROVIDERS: PCP Internal Medicine; Visit Provider Internal Medicine
DX: J41.0 Simple chronic bronchitis (principal); E11.22 Type 2 diabetes mellitus with diabetic chronic kidney disease; N18.30 Chronic kidney disease, stage 3 unspecified; J96.11 Chronic respiratory failure with hypoxia; J96.12 Chronic respiratory failure with hypercapnia; E78.5 Hyperlipidemia, unspecified; D64.9 Anemia, unspecified
CPT/HCPCS: 99214

== ENCOUNTER 2023-07-11 12:48 | Outpatient (REF) | payer MEDICARE, SELFPAY ==
[2023-07-11 16:22] LABS: Iron 46 mcg/dL (30-160); Percent Iron Saturation 17 % (15-50); Total Iron Binding Capacity 276 mcg/dL (228-428); Unsaturated Iron Binding 230 ug/dL
[2023-07-11 16:55] LABS: Vitamin B12 655 pg/mL (200-900)
== END 2023-07-11 12:49 | disposition home or self-care (01) ==
LOC: HO.HMGCLDS 12:48
PROVIDERS: PCP Internal Medicine; Visit Provider Internal Medicine
DX: D64.9 Anemia, unspecified (principal); E11.9 Type 2 diabetes mellitus without complications; N18.30 Chronic kidney disease, stage 3 unspecified; E78.5 Hyperlipidemia, unspecified; J96.11 Chronic respiratory failure with hypoxia; J96.12 Chronic respiratory failure with hypercapnia; J41.0 Simple chronic bronchitis
CPT/HCPCS: 36415; 82607; 82746; 83540

== ENCOUNTER 2023-10-23 09:47 | Outpatient (REF) | payer MEDICARE, SELFPAY ==
[2023-10-23 13:10] LABS: MANUAL DIFF FLAG NO
[2023-10-23 13:20] LABS: Basophils Percent Auto 0.4 % (0-2); Eosinophils Absolute Auto 0.4 X10*3/uL (0.0-0.4); Eosinophils Percent Auto 5.1 % (0-4); Hematocrit 35.6 % (37.0-47.0); Imm Gran Abs Auto 0.03 X10*3/uL (0.00-0.03); Imm Gran Pct Auto 0.4 % (0.0-0.4); Lymphocytes Absolute Auto 1.6 X10*3/uL (1.2-4.9); Lymphocytes Percent Auto 19.9 % (20-40); Mean Corpuscular HGB Conc 30.9 g/dl (31.0-35.0); Mean Corpuscular Hemoglobin 28.7 pg (27.0-33.0); Mean Platelet Volume 12.2 fL (9.4-12.3); Monocytes Absolute Auto 0.6 X10*3/uL (0.1-1.2); Monocytes Percent Auto 7.6 % (2-11); Neutrophils Absolute Auto 5.3 x10*3/uL (2.0-8.3); Neutrophils Percent Auto 66.6 % (45-73); Platelet Count 196 X10*3/uL (160-400); Red Blood Count 3.83 X10*6/uL (4.20-5.50); Red Cell Distribution Width 14.1 % (11.0-16.0)
[2023-10-23 13:37] LABS: Alanine Aminotransferase 14 U/L (0-31); Albumin Level 3.9 g/dL (3.5-5.0); Alkaline Phosphatase 68 U/L (39-117); Anion Gap 13 (12-20); Aspartate Amino Transferase 11 U/L (5-31); Bilirubin Total 0.4 mg/dL (0.0-1.0); Blood Urea Nitrogen 38 mg/dL (9-16); Calcium 8.6 mg/dL (8.4-10.2); Carbon Dioxide 34 mmol/L (22-29); Chloride 98 mmol/L (96-108); Cholesterol 190 mg/dL (<200); Estimated Glomerular Filt Rate 38; Glucose Fasting 166 mg/dL (60-99); HDL Cholesterol 41 mg/dL (>40); LDL Cholesterol Calculated 108 mg/dL (<100); Potassium 4.9 mmol/L (3.3-5.1); Sodium 140 mmol/L (135-145); Total Protein 7.7 g/dL (6.5-8.0); Triglycerides 206 mg/dL (<150)
[2023-10-23 14:02] LABS: Estimated Average Glucose 169 mg/dL; Hemoglobin A1c % 7.5 % (<6.0)
== END 2023-10-23 09:48 | disposition home or self-care (01) ==
LOC: HO.HMGCLDS 09:47
PROVIDERS: PCP Internal Medicine; Visit Provider Internal Medicine
DX: E11.22 Type 2 diabetes mellitus with diabetic chronic kidney disease (principal); N18.30 Chronic kidney disease, stage 3 unspecified; E78.5 Hyperlipidemia, unspecified; J41.0 Simple chronic bronchitis
CPT/HCPCS: 36415; 80053; 80061; 83036; 85025

== ENCOUNTER 2023-10-28 11:50 | Outpatient (AMB) | payer MEDICARE, SELFPAY ==
[2023-10-28 12:09] VITALS: BP 120/64; PULSE 71; O2SAT 96; BMI 37.6
--- NOTE | 2023-10-28 12:09 | A.OFFPC_ITS ---
Vital Signs 10/28/23 12:09 Height 5 ft 3 in Weight 212 lb BMI 37.6 BP 120/64 Blood Pressure Location Rt brachial Position Sitting Pulse 71 Pulse Source Pulse Oximeter Pulse Oximetry (%) 96 Oxygen Delivery Method Nasal Cannula Intake Visit Reasons: 4 Month F/U Intake Note: Pt is here today for 4 months follow up visit on DM and labs. Allergies No Known Allergies Allergy (Verified 10/28/23 12:10) Medication List - Last Reconciled 10/28/23 by Yecenia Lerma MD albuterol sulfate 0.63 mg (3 mL) inhalation Q6H albuterol sulfate 90 mcg/actuation (ProAir HFA) 2 puffs inhalation Q6H PRN atorvastatin 40 mg PO DAILY blood sugar diagnostic ([employer] Ultra Test strips) 1 bid calcitriol 0.25 mcg PO DAILY empagliflozin (Jardiance) 10 mg PO DAILY furosemide 40 mg PO DAILY levothyroxine 125 mcg PO DAILY lisinopril 10 mg PO DAILY metformin 850 mg PO DAILY metoprolol succinate ER 50 mg PO DAILY miscellaneous medical supply 1 pair diabetic shoes as directed; nebulizers As directed Oxygen Home Use As directed umeclidinium-vilanterol 62.5-25 mcg/actuation (Anoro Ellipta) 1 inh inhalation DAILY Tobacco use date assessed: 10/28/23 Dental Screening Dental Screen Date: 07/11/23 HPI 4 Month F/U HPI Details Patient presents for the follow-up of type 2 diabetes hyperlipidemia hypertension hypothyroidism and O2 dependent COPD. [facility] Medical History Annual physical exam Hypoxia Hypothyroid Hyperlipidemia Overweight DM type 2 (diabetes mellitus, type 2) Pulmonary nodule Insomnia Chronic respiratory failure COPD (chronic obstructive pulmonary disease) Surgical History H/O colonoscopy Family History Father No problems noted. Mother Stroke Social History Housing: House Alcohol intake: never Patient Tobacco Use Status: Never used Tobacco e-Cigarette/Vaping Use: Never Used service: No Current occupational status: retired Cognitive needs: No Hearing needs: No Vision needs: Yes Questionnaire Thrive Questionnaire Date Thrive assessed: 07/11/23 I am a: Patient What is your living situation today?: I have a steady place to live Within the past 12 months, did the food you bought not last and you didn't have the money to get more?: Never true Within the past 12 months, did you worry whether your food would run out before you got money to buy more?: Never true Do you have trouble paying for medicines?: I choose not to answer this question Do you have trouble getting transportation to medical appointments?: No Do you have trouble paying your heating and electricity bill?: No Do you have trouble taking care of your child, family member or friend?: No Do you have trouble with day-to-day activities such as bathing, preparing meals, shopping, managing finances, etc.?: No Are you currently unemployed and looking for a job?: No Are you interested in more education?: No Please select the resources that you would like help with: None Currently or been in a relationship where the following occur: No concerns repo rted THRIVE Score: 0 AUDIT C Alcohol Use Questionnaire (AUDIT-C) 1. How often do you have a drink containing alcohol?: Never Total Score: 0 UNRULY-7 AMB Questionnaire UNRULY-7 Date UNRULY - 7 assessed: 07/11/23 Feeling nervous, anxious, or on edge: 0 = Not at all Not being able to stop or control worryin = Not at all Worrying too much about different things: 0 = Not at all Trouble relaxin = Not at all Being so restless that it is hard to sit still: 0 = Not at all Becoming easily annoyed or irritable: 0 = Not at all Feeling afraid as if something awful might happen: 0 = Not at all Total UNRULY-7 score (0-4 normal; 5-9 mild; 10-14 moderate; 15-21 severe): 0 Source: Developed by Drs. Srinivasa Hassan, Oriana Mercado, Florentin Díaz and colleagues, with an educational caryl from [employer]. Review of Systems Const All systems reviewed & are unremarkable except as noted in HPI and below ENT Reports no additional complaints Card Reports no additional complaints Resp Reports no additional complaints GI Reports no additional complaints Physical exam (Primary Care) Vital Signs: Last Vital Signs Pulse 71 10/28/23 12:09 BP 120/64 10/28/23 12:09 Pulse Ox 96 10/28/23 12:09 Oxygen Delivery Method Nasal Cannula 10/28/23 12:09 BMI result Body Mass Index 37.6 Tobacco/Smoking Status: Tobacco use Status Tobacco use date assessed 10/28/23 10/28/23 12:10 Patient Tobacco Use Status Never used Tobacco 10/28/23 12:10 e-Cigarette/Vaping Use Never Used 10/28/23 12:10 Thrive Assessment: Date of Thrive Assessment Date Thrive assessed 07/11/23 10/28/23 12:10 Currently or been in a relationship where the following occur: No concerns reported Const General: no acute distress HENMT Head: Yes normal to inspection Neck Neck: Yes supple Resp Effort & Inspection: normal respiratory effort Auscultation: clear to auscultation bilaterally Cardio Rhythm: regular rhythm Heart sounds: S1 normal heart sound present and S2 normal heart sound present Assessment and Plan Assessment & Plan (1) CKD (chronic kidney disease) stage 3, GFR 30-59 ml/min: Code(s): N18.30 - Chronic kidney disease, stage 3 unspecified Plan: Avoid nephrotoxins monitor renal function start Jardiance 10 mg (2) Hyperlipidemia: Code(s): E78.5 - Hyperlipidemia, unspecified Plan: Continue statin (3) DM type 2 (diabetes mellitus, type 2): Comment: Patient could not tolerate more than 850 mg of metformin because of diarrhea, hypoglycemia on glipizide Code(s): E11.9 - Type 2 diabetes mellitus without complications Plan: A1c 7.5. ADA diet increase physical activity weight loss discussed with the patient. Jardiance will be added to metformin, follow-up in 4 months with a fasting labs (4) Hypertension: Code(s): I10 - Essential (primary) hypertension Plan: Continue current medications (5) COPD (chronic obstructive pulmonary disease): Code(s): J44.9 - Chronic obstructive pulmonary disease, unspecified Qualifiers: COPD type: chronic bronchitis Chronic bronchitis type: simple Qualified Code(s): J41.0 - Simple chronic bronchitis Plan: Continue Anoro and supplemental O2 Orders: Orders Comprehensive [place]. Panel Fast 4 Months E11.9 - Type 2 diabetes mellitus without complications, E78.5 - Hyperlipidemia, unspecified, I10 - Essential (primary) hypertension, J41.0 - Simple chronic bronchitis, N18.30 - Chronic kidney disease, stage 3 unspecified Complete Blood Count Auto Diff 4 Months E11.9 - Type 2 diabetes mellitus without complications, E78.5 - Hyperlipidemia, unspecified, I10 - Essential (primary) hypertension, J41.0 - Simple chronic bronchitis, N18.30 - Chronic kidney disease, stage 3 unspecified Hemoglobin A1c 4 Months E11.9 - Type 2 diabetes mellitus without complications, E78.5 - Hyperlipidemia, unspecified, I10 - Essential (primary) hypertension, J41.0 - Simple chronic bronchitis, N18.30 - Chronic kidney disease, stage 3 unspecified TSH reflex Free T4 4 Months E11.9 - Type 2 diabetes mellitus without complications, E78.5 - Hyperlipidemia, unspecified, I10 - Essential (primary) hypertension, J41.0 - Simple chronic bronchitis, N18.30 - Chronic kidney disease, stage 3 unspecified Lipid Panel 4 Months E11.9 - Type 2 diabetes mellitus without complications, E78.5 - Hyperlipidemia, unspecified, I10 - Essential (primary) hypertension, J41.0 - Simple chronic bronchitis, N18.30 - Chronic kidney disease, stage 3 unspecified Microalbumin, Random (w Creat) 4 Months E11.9 - Type 2 diabetes mellitus without complications, E78.5 - Hyperlipidemia, unspecified, I10 - Essential (primary) hypertension, J41.0 - Simple chronic bronchitis, N18.30 - Chronic kidney disease, stage 3 unspecified Medications: New empagliflozin (Jardiance) 10 mg PO DAILY 90 tabs 1RF Changed From albuterol sulfate 90 mcg/actuation (ProAir HFA) 2 puffs inhalation Q6H PRN To albuterol sulfate 90 mcg/actuation 2 puffs inhalation Q6H PRN 8.5 grams 2RF shortness of breath or wheezing Refilled atorvastatin 40 mg PO DAILY 90 tabs 3RF furosemide 40 mg PO DAILY 90 tabs 3RF lisinopril 10 mg PO DAILY 90 tabs 3RF metformin 850 mg PO DAILY 90 tabs 3RF umeclidinium-vilanterol 62.5-25 mcg/actuation (Anoro Ellipta) 1 inh inhalation DAILY 60 ea 11RF J44.9 - Chronic obstructive pulmonary disease, unspecified levothyroxine 125 mcg PO DAILY 90 tabs 3RF metoprolol succinate ER 50 mg PO DAILY 90 tabs 3RF I10 - Essential (primary) hypertension Discontinued calcitriol Discontinued Reason: Doctor's Order 0.25 mcg PO DAILY 90 caps 3RF Coding Level of Care Code Est Pt Level 4 (65199) Diagnoses CKD (chronic kidney disease) stage 3, GFR 30-59 ml/min N18.30 Hyperlipidemia E78.5 DM type 2 (diabetes mellitus, type 2) E11.9 Hypertension I10 Simple chronic bronchitis J41.0 COPD type: chronic bronchitis Chronic bronchitis type: simple
== END 2023-10-28 13:31 | disposition home or self-care (01) ==
PROVIDERS: PCP Internal Medicine; Visit Provider Internal Medicine
DX: I12.9 Hypertensive chronic kidney disease with stage 1 through stage 4 chronic kidney disease, or unspecified chronic kidney disease (principal); N18.30 Chronic kidney disease, stage 3 unspecified; E11.22 Type 2 diabetes mellitus with diabetic chronic kidney disease; J41.0 Simple chronic bronchitis; E78.5 Hyperlipidemia, unspecified
CPT/HCPCS: 99214

== ENCOUNTER 2024-03-19 10:05 | Outpatient (REF) | payer MEDICARE, SELFPAY ==
[2024-03-19 13:53] LABS: MANUAL DIFF FLAG NO
[2024-03-19 13:58] LABS: Basophils Percent Auto 0.4 % (0-2); Eosinophils Absolute Auto 0.3 X10*3/uL (0.0-0.4); Eosinophils Percent Auto 3.8 % (0-4); Hematocrit 35.7 % (37.0-47.0); Hemoglobin 10.8 g/dl (12.0-16.0); Imm Gran Abs Auto 0.02 X10*3/uL (0.00-0.03); Imm Gran Pct Auto 0.3 % (0.0-0.4); Lymphocytes Absolute Auto 1.6 X10*3/uL (1.2-4.9); Lymphocytes Percent Auto 20.6 % (20-40); Mean Corpuscular HGB Conc 30.3 g/dl (31.0-35.0); Mean Corpuscular Hemoglobin 28.6 pg (27.0-33.0); Mean Corpuscular Volume 94.4 fL (80.0-98.0); Mean Platelet Volume 12.3 fL (9.4-12.3); Monocytes Absolute Auto 0.7 X10*3/uL (0.1-1.2); Monocytes Percent Auto 9.2 % (2-11); Neutrophils Absolute Auto 5.1 x10*3/uL (2.0-8.3); Neutrophils Percent Auto 65.7 % (45-73); Platelet Count 196 X10*3/uL (160-400); Red Blood Count 3.78 X10*6/uL (4.20-5.50); Red Cell Distribution Width 14.1 % (11.0-16.0); White Blood Count 7.7 X10*3/uL (4.8-10.8)
[2024-03-19 14:11] LABS: Estimated Average Glucose 194 mg/dL; Hemoglobin A1C 185.2656 umol/L; Hemoglobin A1c % 8.4 % (<6.0); Total Hemoglobin (HGBA1C) 2704.8045 umol/L
[2024-03-19 14:48] LABS: Alanine Aminotransferase 14 U/L (0-31); Albumin Level 3.8 g/dL (3.5-5.0); Alkaline Phosphatase 68 U/L (39-117); Anion Gap 13 (12-20); Aspartate Amino Transferase 17 U/L (5-31); Bilirubin Total 0.3 mg/dL (0.0-1.0); Blood Urea Nitrogen 28 mg/dL (9-16); Calcium 8.5 mg/dL (8.4-10.2); Carbon Dioxide 34 mmol/L (22-29); Chloride 101 mmol/L (96-108); Cholesterol 185 mg/dL (<200); Estimated Glomerular Filt Rate 49; Glucose Fasting 186 mg/dL (60-99); HDL Cholesterol 42 mg/dL (>40); LDL Cholesterol Calculated 106 mg/dL (<100); Potassium 4.9 mmol/L (3.3-5.1); Sodium 143 mmol/L (135-145); Total Protein 7.6 g/dL (6.5-8.0); Triglycerides 188 mg/dL (<150)
[2024-03-19 15:02] LABS: Creatinine Urine 149.28 mg/dL; Microalbumin Urine < 5.0 mg/L
[2024-03-19 15:11] LABS: TSH reflex Free T4 0.74 uIU/mL (0.32-4.0)
== END 2024-03-19 10:06 | disposition home or self-care (01) ==
LOC: HO.HMGCLDS 10:05
PROVIDERS: PCP Internal Medicine; Visit Provider Internal Medicine
DX: E11.22 Type 2 diabetes mellitus with diabetic chronic kidney disease (principal); I12.9 Hypertensive chronic kidney disease with stage 1 through stage 4 chronic kidney disease, or unspecified chronic kidney disease; N18.30 Chronic kidney disease, stage 3 unspecified; E78.5 Hyperlipidemia, unspecified; J41.0 Simple chronic bronchitis
CPT/HCPCS: 36415; 80053; 80061; 82043; 82570; 83036; 84443; 85025

== ENCOUNTER 2024-03-24 12:07 | Outpatient (AMB) | payer MEDICARE, SELFPAY ==
[2024-03-24 12:08] VITALS: BP 138/76; PULSE 83; RESP 14; TEMP 36.7; O2SAT 90; BMI 38.8
--- NOTE | 2024-03-24 12:08 | MHC.PC.OV ---
Vital Signs 03/24/24 12:08 Height 5 ft 3 in Weight 219 lb 2 oz BMI 38.8 BP 138/76 Blood Pressure Location Rt brachial Position Sitting Respiration 14 Pulse 83 Pulse Source Pulse Oximeter Temp 98.0 F Temp Source Oral Pulse Oximetry (%) 90 L Oxygen Delivery Method Simple Mask Intake Visit Reasons: PE Accompanied by: Spouse Allergies No Known Allergies Allergy (Verified 03/24/24 12:18) Medication List - Last Reconciled 03/24/24 by Yecenia Lerma MD albuterol sulfate 0.63 mg (3 mL) inhalation Q6H albuterol sulfate 90 mcg/actuation 2 puffs inhalation Q6H PRN atorvastatin 40 mg PO DAILY blood sugar diagnostic ([employer] Ultra Test strips) 1 bid empagliflozin (Jardiance) 10 mg PO DAILY furosemide 40 mg PO DAILY levothyroxine 125 mcg PO DAILY lisinopril 10 mg PO DAILY metformin 850 mg PO DAILY metoprolol succinate ER 50 mg PO DAILY miscellaneous medical supply 1 pair diabetic shoes as directed; nebulizers As directed Oxygen Home Use As directed Ozempic (semaglutide) 0.25 mg (0.368 mL) subcut QWEEK NS umeclidinium-vilanterol 62.5-25 mcg/actuation (Anoro Ellipta) 1 inh inhalation DAILY Tobacco use date assessed: 03/24/24 Fall risk assessment: No Falls in past year Last assessed Fall Risk: 03/24/24 Dental Screening Dental Screen Date: 03/24/24 Did you have a dental visit in the last 12 months?: Yes Did you have a dental problem in the last 6 months where you did not have access to dental care?: No Was dental information given to patient?: Patient has dentist HPI PE HPI Details Patient presents for the follow-up. She has not been compliant with ADA diet and reports elevated blood glucose readings and gaining weight. [facility] Medical History Annual physical exam Hypoxia Hypothyroid Hyperlipidemia Overweight DM type 2 (diabetes mellitus, type 2) Pulmonary nodule Insomnia Chronic respiratory failure COPD (chronic obstructive pulmonary disease) Surgical History H/O colonoscopy Family History Father No problems noted. Mother Stroke Social History Housing: House Alcohol intake: never Patient Tobacco Use Status: Never used Tobacco e-Cigarette/Vaping Use: Never Used service: No Current occupational status: retired Cognitive needs: No Hearing needs: No Vision needs: Yes Questionnaire PHQ-9 Over the last 2 weeks, how often have you been bothered by any of the following problems? 1. Little interest or pleasure in doing things: not at all 2. Feeling down, depressed, or hopeless: not at all 3. Trouble falling or staying asleep, or sleeping too much: not at all 4. Feeling tired or having little energy: not at all 5. Poor appetite or overeating: not at all 6. Feeling bad about yourself - or that you are a failure or have let yourself or your family down: not at all 7. Trouble concentrating on things, such as reading the newspaper or watching television: not at all 8. Moving or speaking so slowly that other people could have noticed. Or the opposite - being so fidgety or restless that you have been moving around a lot more than usual: not at all 9. Thoughts that you would be better off or of hurting yourself in some way: not at all Total score: 0 Depression Screening Interpretation: Negative Depression Screening Done: Yes 70416 - PHQ-9 Billing: Yes Source: Developed by Drs. Srinivasa Hassan, Oriana Mercado, Florentin Díaz and colleagues, with an educational caryl from [employer]. Thrive Questionnaire Date Thrive assessed: 03/24/24 I am a: Patient What is your living situation today?: I have a steady place to live Within the past 12 months, did the food you bought not last and you didn't have the money to get more?: Never true Within the past 12 months, did you worry whether your food would run out before you got money to buy more?: Never true Do you have trouble paying for medicines?: I choose not to answer this question Do you have trouble getting transportation to medical appointments?: No Do you have trouble paying your heating and electricity bill?: No Do you have trouble taking care of your child, family member or friend?: No Do you have trouble with day-to-day activities such as bathing, preparing meals, shopping, managing finances, etc.?: No Are you currently unemployed and looking for a job?: No Are you interested in more education?: No Please select the resources that you would like help with: None Currently or been in a relationship where the following occur: No concerns reported THRIVE Score: 0 AUDIT C Alcohol Use Questionnaire (AUDIT-C) 1. How often do you have a drink containing alcohol?: Never 3. How often do you have six or more drinks on one occasion?: Never Total Score: 0 Score Reviewed/Action Taken: Yes UNRULY-7 AMB Questionnaire UNRULY-7 Date UNRULY - 7 assessed: 03/24/24 Feeling nervous, anxious, or on edge: 0 = Not at all Not being able to stop or control worryin = Not at all Worrying too much about different things: 0 = Not at all Trouble relaxin = Not at all Being so restless that it is hard to sit still: 0 = Not at all Becoming easily annoyed or irritable: 0 = Not at all Feeling afraid as if something awful might happen: 0 = Not at all Total UNRULY-7 score (0-4 normal; 5-9 mild; 10-14 moderate; 15-21 severe): 0 Source: Developed by Drs. Srinivasa Hassan, Oriana Mercado, Florentin Díaz and colleagues, with an educational caryl from [employer]. UNRULY-7 Assessment Billing UNRULY-7 Assessment Tool: UNRULY-7 Assessment 39770 Review of Systems Const All systems reviewed & are unremarkable except as noted in HPI and below Eyes Reports no additional complaints ENT Reports no additional complaints Card Reports no additional complaints Resp Reports no additional complaints Reports no additional complaints Physical exam (Primary Care) Vital Signs: Last Vital Signs Temp 98.0 F 03/24/24 12:08 Pulse 83 03/24/24 12:08 Resp 14 03/24/24 12:08 BP 138/76 03/24/24 12:08 Pulse Ox 90 L 03/24/24 12:08 Oxygen Delivery Method Simple Mask 03/24/24 12:08 BMI result Body Mass Index 38.8 Tobacco/Smoking Status: Tobacco use Status Tobacco use date assessed 03/24/24 03/24/24 12:21 Patient Tobacco Use Status Never used Tobacco 03/24/24 12:09 e-Cigarette/Vaping Use Never Used 03/24/24 12:09 PHQ-9: PHQ-9 Score PHQ-9: Total score 0 03/24/24 12:21 Depression Screening Interpretation: Negative Thrive Assessment: Date of Thrive Assessment Date Thrive assessed 03/24/24 03/24/24 12:21 Currently or been in a relationship where the following occur: No concerns reported Const General: no acute distress HENMT Head: Yes normal to inspection Ears: hearing grossly normal bilaterally Throat: Yes posterior oropharynx normal Neck Neck: Yes no lymphadenopathy and Yes supple Resp Effort & Inspection: normal respiratory effort Auscultation: clear to auscultation bilaterally Cardio Rhythm: regular rhythm Heart sounds: S1 normal heart sound present and S2 normal heart sound present GI Inspection: Yes normal to inspection Palpation (GI): Soft to palpation Percussion: Yes normal to percussion Auscultation: normal bowel sounds Extrem Other: 1+ pitting edema b/l Coding Level of Care Code Est Pt Prev Care >65y(55985) Diagnoses DM type 2 (diabetes mellitus, type 2) E11.9 CKD (chronic kidney disease) stage 3, GFR 30-59 ml/min N18.30 Hyperlipidemia E78.5 Simple chronic bronchitis J41.0 COPD type: chronic bronchitis Chronic bronchitis type: simple Chronic respiratory failure with hypoxia and hypercapnia J96.11; J96.12 Respiratory failure complication: hypoxia and hypercapnia Additional Codes UNRULY-7 Assessment Billing - UNRULY-7 Assessment Tool: UNRULY-7 Assessment 00824 ([id number]) PHQ-9 - 62643 - PHQ-9 Billing: Yes ([id number]) Assessment & Plan Assessment & Plan (1) DM type 2 (diabetes mellitus, type 2): Comment: Patient could not tolerate more than 850 mg of metformin because of diarrhea, hypoglycemia on glipizide Code(s): E11.9 - Type 2 diabetes mellitus without complications Category: Medical Plan: A1c is up to 8.5 from 7.4, ADA diet increase exercise weight loss discussed with the patient. Patient will continue current medications and at Ozempic 0.25 mg weekly to improve glycemic controlled and facilitate weight loss (2) CKD (chronic kidney disease) stage 3, GFR 30-59 ml/min: Code(s): N18.30 - Chronic kidney disease, stage 3 unspecified Category: Medical Plan: Monitor renal function avoid nephrotoxins (3) Hyperlipidemia: Code(s): E78.5 - Hyperlipidemia, unspecified Category: Medical Plan: Continue statin (4) COPD (chronic obstructive pulmonary disease): Code(s): J44.9 - Chronic obstructive pulmonary disease, unspecified Category: Medical Qualifiers: COPD type: chronic bronchitis Chronic bronchitis type: simple Qualified Code(s): J41.0 - Simple chronic bronchitis Plan: Continue Anoro (5) Chronic respiratory failure: Comment: Hypoventilation due to morbid obesity, on 24 hours supplemental O2. Patient could not tolerate CPAP, follow-up with pulmonology Code(s): J96.10 - Chronic respiratory failure, unspecified whether with hypoxia or hypercapnia Category: Medical Qualifiers: Respiratory failure complication: hypoxia and hypercapnia Qualified Code(s): J96.11 - Chronic respiratory failure with hypoxia; J96.12 - Chronic respiratory failure with hypercapnia Plan: Continue supplemental O2 and follow-up with pulmonology, return in 3 months with a fasting labs before Orders: Orders Lipid Panel 3 Months E11.9 - Type 2 diabetes mellitus without complications, E78.5 - Hyperlipidemia, unspecified, J41.0 - Simple chronic bronchitis, J96.11 - Chronic respiratory failure with hypoxia, J96.12 - Chronic respiratory failure with hypercapnia, N18.30 - Chronic kidney disease, stage 3 unspecified Hemoglobin A1c 3 Months E11.9 - Type 2 diabetes mellitus without complications, E78.5 - Hyperlipidemia, unspecified, J41.0 - Simple chronic bronchitis, J96.11 - Chronic respiratory failure with hypoxia, J96.12 - Chronic respiratory failure with hypercapnia, N18.30 - Chronic kidney disease, stage 3 unspecified Comprehensive [place]. Panel Fast 3 Months E11.9 - Type 2 diabetes mellitus without complications, E78.5 - Hyperlipidemia, unspecified, J41.0 - Simple chronic bronchitis, J96.11 - Chronic respiratory failure with hypoxia, J96.12 - Chronic respiratory failure with hypercapnia, N18.30 - Chronic kidney disease, stage 3 unspecified Complete Blood Count Auto Diff 3 Months E11.9 - Type 2 diabetes mellitus without complications, E78.5 - Hyperlipidemia, unspecified, J41.0 - Simple chronic bronchitis, J96.11 - Chronic respiratory failure with hypoxia, J96.12 - Chronic respiratory failure with hypercapnia, N18.30 - Chronic kidney disease, stage 3 unspecified Microalbumin, Random (w Creat) 3 Months E11.9 - Type 2 diabetes mellitus without complications, E78.5 - Hyperlipidemia, unspecified, J41.0 - Simple chronic bronchitis, J96.11 - Chronic respiratory failure with hypoxia, J96.12 - Chronic respiratory failure with hypercapnia, N18.30 - Chronic kidney disease, stage 3 unspecified Medications: New Ozempic (semaglutide) for 4 weeks 0.25 mg (0.368 mL) subcut QWEEK 9 mL 1RF NS
--- OUTSIDE RECORDS SUMMARY | 2024-03-24 14:29 | XMS_ITS | Clinical Summary ---
Author Organization [facility] ity Address [address] [place] [address] Care Team Providers Care [facility] Laboratory Assistant Name Role Phone Yecenia Lerma MD Primary Care Provider [phone] Social History Tobacco Use Types Packs/Day Years Used Date Smoking Tobacco: Passive Smo ke Exposure - Never Smoker Smokeless Tobacco: Never Alcohol Use Standard Drinks/Week Comments Yes 1 (1 standard drink = 0.6 oz pur e alcohol) Sex and Gender Information Value Date Recorded Sex Assigned at Not on file Gender Identity Not on file Sexual Orientation Not on file Obstetrics History Plan of Treatment Health Maintenance Due Date Last Done Comments DTaP,Tdap,and Td Vaccines (1 - Tdap) 07/25/1962 Zoster Vaccines (1 of 2) 07/25/1993 Pneumococcal Vaccine: 65+ Ye ars (1 of 1 - PCV) 07/25/2008 RSV Immunization Patients 60 + Years Old (1 - 1-dose 75+ series) 07/25/2018 Depression Screening 01/26/2022 Falls Risk Assessment 01/26/2022 Osteoporosis Screening (Bone Density Screening) 01/26/2022 Social Influencers of Health Screening 01/26/2022 COVID-19 Vaccine ( - 2023-2 5 season) 2023 Influenza Vaccine (#1) 2023 HIB Vaccines Aged Out No longer eligi ble based on patient's age to complete this topic HPV Vaccines Aged Out No longer eligi ble based on patient's age to complete this topic Hepatitis A Vaccines Aged Out No long er eligible based on patient's age to complete this topic Hepatitis B Vaccines Aged Out No long er eligible based on patient's age to complete this topic IPV Vaccines Aged Out No longer eligi ble based on patient's age to complete this topic MMR Vaccines Aged Out No longer eligi ble based on patient's age to complete this topic Meningococcal ACWY Vaccine Aged Out N o longer eligible based on patient's age to complete this topic RSV Immunization Patients Un bharat 20 months Aged Out No longer eligible b ased on patient's age to complete this topic Varicella Vaccines Aged Out No longer eligible based on patient's age to complete this topic Care Teams [facility] Laboratory Assistant Relationship Specialty Start Date End Date Yecenia Lerma MD PCP - General Internal Medicine 03/17/18
== END 2024-03-24 13:15 | disposition home or self-care (01) ==
PROVIDERS: PCP Internal Medicine; Visit Provider Internal Medicine
DX: Z00.00 Encounter for general adult medical examination without abnormal findings (principal); E11.69 Type 2 diabetes mellitus with other specified complication; N18.30 Chronic kidney disease, stage 3 unspecified; J41.0 Simple chronic bronchitis; J96.11 Chronic respiratory failure with hypoxia; J96.12 Chronic respiratory failure with hypercapnia; E78.5 Hyperlipidemia, unspecified

== ENCOUNTER → 2024-03-24 12:07 | Outpatient (BNVA) | payer MEDICARE, SELFPAY | PROVIDERS: PCP Internal Medicine; Visit Provider Internal Medicine | DX: Z00.00 Encounter for general adult medical examination without abnormal findings (principal); E11.22 Type 2 diabetes mellitus with diabetic chronic kidney disease; N18.30 Chronic kidney disease, stage 3 unspecified; E78.5 Hyperlipidemia, unspecified; J41.0 Simple chronic bronchitis; J96.11 Chronic respiratory failure with hypoxia; J96.12 Chronic respiratory failure with hypercapnia | CPT/HCPCS: 96127; 99397 ==

== ENCOUNTER 2024-05-17 15:00 | Outpatient (AMB) | payer MEDICARE, SELFPAY ==
--- NOTE | 2024-05-17 15:07 | MHC.OFFVIS ---
Vital Signs 05/17/24 15:09 Height 5 ft 3 in Weight 222 lb 10.67 oz BMI 39.4 BP 140/62 H Blood Pressure Location Rt brachial Position Sitting Pulse 79 Pulse Source Pulse Oximeter Pulse Oximetry (%) 91 L Oxygen Delivery Method Nasal Cannula Oxygen Flow Rate 2 Intake Visit Reasons: Shortness of breath Allergies No Known Allergies Allergy (Verified 05/17/24 15:14) HPI Comments Details: The patient is a 78-year-old woman with known COPD, obstructive sleep apnea and chronic hypoxic respiratory failure. The patient likely has a combination of COPD, hypoventilation and atelectasis along with a mild degree of diastolic dysfunction which may all be contributing to her underlying hypoxia. She is using her battery powered portable oxygen concentrator with activity with good effect. She is using the oxygen at nighttime. She tried and failed CPAP. She did have a CT scan of the chest back in May 2018 demonstrating stable pulmonary nodule. Her next CAT scan is May 2019. 07/23/2019 patient has a telephone visit. Overall she is feels about the same. Still having dyspnea on exertion. Gvic-tr-wfxaelln severity. She is using the oxygen with good effect. She is maintaining the oxygen with activity and with sleep. She is waking up tired at times. Does have daytime drowsiness she says her energy levels are going down. The patient is not interested in CPAP therapy or read doing the sleep study at this time. She does have underlying pulmonary nodules. She was supposed to have a CT scan in May 2019. However, with the COVID-19 infections will postpone it to July of 2019. 10/25/2021 the patient is here for pulmonary follow-up visit. Overall she is doing better. The Anoro inhaler has improved her dyspnea symptoms. She feels her airways are more open and she is able to expectorate better. She continues use the oxygen with good effect. She does have a POC when she is outside of the home and she does have the continues oxygen she can use when she is in the home. We did review her blood work. She did have a blood gas done back in 2018 demonstrating a pCO2 of 53 at that time. Her PO2 was slightly decreased some upper the patient did have also a more recent blood work including a basal metabolic panel. Her bicarb 37. Explained to the patient that is likely that she has additional hypercarbia. Explained to the patient and also her daughter the concerns of elevations in the CO2. Clinically she is doing okay right now sometimes she is a little bit more drowsy as per her daughter. She did try using CPAP in the past and she did not tolerated at all. Therefore the patient is reluctant to consider any type of PAP therapy. Will continue with the Anoro since is helping and will also plan to repeat her ABG during the next visit. If her daughter notices increased daytime drowsiness confusion or any other concerning finding she is to call our office for an earlier assessment were we can do the ABG had earlier time. 07/05/2022 the patient is here for pulmonary follow-up visit. Overall the patient is with a lot better on the Anoro inhaler. She feels like her dyspnea is improved. She continues use her oxygen. Back in March she developed COVID-19. She did develop a bad week of worsening respiratory symptoms. She had increased her oxygen to 3 L. However, even when she got better she has kept up a little higher at 2.5 L. She is monitored she should go down to 2 L at this time. She did have a blood gas and we did look at it. On that 2 L pulse her PO2 was actually 74 mmHg. Therefore she probably can go down to 2 L as long as her pulse ox is above 90-92%. The patient also had her pCO2 which was at 51 mmHg which is actually improved from before. The patient appears to be stabilizing. No recent imaging studies. Her last CT scan demonstrated stable pulmonary nodules have the numerous years. At this point the patient through well time to follow-up in a year's time with a chest x-ray read if she has any issues prior to that she is to call the office for an earlier evaluation. 05/17/2024 the patient is here for pulmonary follow-up visit. The patient overall has been doing okay from a respiratory status. She continues on the oxygen with good effect. She has been complaining of off and on epigastric and lower chest discomfort in the substernal area. Does not seem to be reproducible. Is not associated with activity although she is pretty sedentary at this time specially with the winter months. The patient has not had a chest x-ray and some time and nor I do see an EKG. She will have those done today. As far as my examination the patient does appear to have some epigastric discomfort and therefore gastritis or esophagitis is in the differential. So she will start PPI for now. Hopefully her EKG and x-ray are okay. Also barium swallow may be helpful to better assess the area. If her EKGs abnormal she will need further follow-up for that. [facility] Medical History (Updated 05/17/24 @ 21:26 by Luke Grajeda MD) Chest pain Annual physical exam Hypoxia Hypothyroid Hyperlipidemia Overweight DM type 2 (diabetes mellitus, type 2) Pulmonary nodule Insomnia Chronic respiratory failure COPD (chronic obstructive pulmonary disease) Surgical History H/O colonoscopy Family History Father No problems noted. Mother Stroke Social History Housing: House Alcohol intake: never Patient Tobacco Use Status: Never used Tobacco e-Cigarette/Vaping Use: Never Used service: No Current occupational status: retired Cognitive needs: No Hearing needs: No Vision needs: Yes Review of Systems Const Denies daytime sleepiness, Reports difficulty sleeping and Denies night sweats ENT Denies change in voice, Denies lip swelling, Denies mouth pain, Reports nasal congestion, Reports nasal discharge and Denies tongue swelling Card Reports chest pain and Reports dyspnea on exertion Resp Reports cough and Reports dyspnea on exertion GI Reports abdominal pain Musc Denies no additional complaints Neuro Denies Neuro-related abnormal movements Psych Denies no additional complaints Lm/Lymph Denies easy bleeding and Denies lymphadenopathy Aller/Immun Denies lip swelling and Denies tongue swelling Physical Exam Vital Signs: Last Vital Signs Pulse 79 05/17/24 15:09 BP 140/62 H 05/17/24 15:09 Pulse Ox 91 L 05/17/24 15:09 Oxygen Delivery Method Nasal Cannula 05/17/24 15:09 Oxygen Flow Rate 2 05/17/24 15:09 BMI result Body Mass Index 39.4 Const General: alert Neck Neck: Yes normal visual inspection, Yes full ROM and Yes no lymphadenopathy Chest Chest palpation & inspection: normal inspection of the chest and no tenderness Resp Effort & Inspection: normal respiratory effort Auscultation: diminished lung sounds Cardio Rate: regular rate Rhythm: regular rhythm Heart sounds: S1 normal heart sound present and S2 normal heart sound present GI Palpation (GI): Soft to palpation and Tenderness to palpation present (GI) in the epigastrum Auscultation: normal bowel sounds Skin General skin exam: rashes and/or lesions noted Assessment & Plan Assessment & Plan (1) Pulmonary nodule: Comment: Stable for many years, benign process Code(s): R91.1 - Solitary pulmonary nodule Category: Medical (2) Insomnia: Code(s): G47.00 - Insomnia, unspecified Category: Medical Qualifiers: Insomnia type: primary Qualified Code(s): F51.01 - Primary insomnia (3) Chronic respiratory failure: Comment: Hypoventilation due to morbid obesity, on 24 hours supplemental O2. Patient could not tolerate CPAP, follow-up with pulmonology Code(s): J96.10 - Chronic respiratory failure, unspecified whether with hypoxia or hypercapnia Category: Medical Qualifiers: Respiratory failure complication: hypoxia and hypercapnia Qualified Code(s): J96.11 - Chronic respiratory failure with hypoxia; J96.12 - Chronic respiratory failure with hypercapnia (4) COPD (chronic obstructive pulmonary disease): Code(s): J44.9 - Chronic obstructive pulmonary disease, unspecified Category: Medical Qualifiers: COPD type: chronic bronchitis Chronic bronchitis type: simple Qualified Code(s): J41.0 - Simple chronic bronchitis (5) Chest pain: Comment: SSCP versus epigastric. Code(s): R07.9 - Chest pain, unspecified Category: Medical Qualifiers: Chest pain type: unspecified Qualified Code(s): R07.9 - Chest pain, unspecified Plan Continue Anoro 1 inhalation daily. short-acting beta agonist as needed Weight management Continue oxygen continuously 2-2.5 L to keep pox 90-96% CXR EKG Barium swallow start PPI reflux diet follow-up in 3 months, if cp reoccurs should seek urgent medical advice Orders: Orders XR chest 2V Today R07.9 - Chest pain, unspecified ECG 12 lead EKG Today J44.9 - Chronic obstructive pulmonary disease, unspecified, R07.9 - Chest pain, unspecified [place] barium swallow Today K21.9 - Gastro-esophageal reflux disease without esophagitis, R07.9 - Chest pain, unspecified Medications: New omeprazole 40 mg PO DAILY 30 caps 3RF 30 days Coding Level of Care Code Est Pt Level 4 (97797) Complex EM visit Add On G2211 Diagnoses Pulmonary nodule R91.1 Primary insomnia F51.01 Insomnia type: primary Chronic respiratory failure with hypoxia and hypercapnia J96.11; J96.12 Respiratory failure complication: hypoxia and hypercapnia Simple chronic bronchitis J41.0 COPD type: chronic bronchitis Chronic bronchitis type: simple Chest pain, unspecified type R07.9 Chest pain type: unspecified Time Spent (min) 18
[2024-05-17 15:09] VITALS: BP 140/62; PULSE 79; O2SAT 91; BMI 39.4
--- OUTSIDE RECORDS SUMMARY | 2024-05-17 17:57 | XMS_ITS | Clinical Summary ---
Author Organization [facility] it Address [address] [place] [address] Care Team Providers Care Ironer Or Presser Name Role Phone Yecenia Lerma MD Primary Care Provider [phone] Social History Tobacco Use Types Packs/Day Years Used Date Smoking Tobacco: Passive Smo ke Exposure - Never Smoker Smokeless Tobacco: Never Alcohol Use Standard Drinks/Week Comments Yes 1 (1 standard drink = 0.6 oz pur e alcohol) Comments Unknown Sex and Gender Information Value Date Recorded Sex Assigned at Not on file Legal Sex Female 9:31 PM EST Gender Identity Not on file Sexual Orientation Not on file Obstetrics History Plan of Treatment Health Maintenance Due Date Last Done Comments DTaP,Tdap,and Td Vaccines (1 - Tdap) 07/25/1962 Pneumococcal Vaccine: 50+ Ye ars (1 of 1 - PCV) 07/25/1993 Zoster Vaccines (1 of 2) 07/25/1993 RSV Immunization Patients 60 + Years Old (1 - 1-dose 75+ series) 07/25/2018 Depression Screening 01/26/2022 Falls Risk Assessment 01/26/2022 Osteoporosis Screening (Bone Density Screening) 01/26/2022 Social Influencers of Health Screening 01/26/2022 COVID-19 Vaccine (2023-2 5 season) 2023 Influenza Vaccine (#1) 2023 [...] patient's age to complete this topic Meningococcal B Vacine Aged Out No lo nger eligible based on patient's age to complete this topic RSV Immunization Patients Un bharat 20 months Aged Out No longer eligible b ased on patient's age to complete this topic Varicella Vaccines Aged Out No longer eligible based on patient's age to complete this topic Care Teams Ironer Or Presser Relationship Specialty Start Date End Date Yecenia Lerma MD PCP - General Internal Medicine 03/17/18
== END 2024-05-17 15:37 | disposition home or self-care (01) ==
LOC: HO.HPS 15:00
PROVIDERS: PCP Internal Medicine; Visit Provider Hospitalist
DX: R91.1 Solitary pulmonary nodule (principal); F51.01 Primary insomnia; J96.11 Chronic respiratory failure with hypoxia; J96.12 Chronic respiratory failure with hypercapnia; J41.0 Simple chronic bronchitis; R07.9 Chest pain, unspecified
CPT/HCPCS: 99214; G2211

== ENCOUNTER 2024-05-17 15:00 | Outpatient (REF) | payer MEDICARE, SELFPAY ==
--- NOTE | ~2024-05-17 | XR_ITS ---
EXAMINATION: XR CHEST 2 VIEWS HISTORY: R07.9 - Chest pain, unspecified COMPARISON: There are no prior studies for comparison. FINDINGS: PA and lateral views of the chest are submitted. There is mild prominence of the pulmonary vasculature, consistent with congestion. There is a small pleural effusion, best seen on the lateral view. There is no pneumothorax. The heart is enlarged. There is degenerative disc disease of the spine. XR/XR chest 2V IMPRESSION: Cardiomegaly, mild pulmonary vascular congestion, and small pleural effusion. Electronically signed by: Srinivasa Oswald MD 05/18/2024 08:51 AM EDT
--- NOTE | 2024-05-17 15:53 | ECG_ITS ---
Test Reason : COPD Blood Pressure : */* mmHG Vent. Rate : 80 BPM Atrial Rate : 80 BPM P-R Int : 150 ms QRS Dur : 84 ms QT Int : 404 ms P-R-T Axes : 69 60 76 degrees QTcB Int : 465 ms Normal sinus rhythm Normal ECG No previous ECGs available Referred By: Luke Grajeda Electronically Signed By: BISHOP PRUITT MD
== END 2024-05-17 15:01 | disposition home or self-care (01) ==
LOC: HO.XRAY 15:00
PROVIDERS: PCP Internal Medicine; Visit Provider Hospitalist
DX: R91.1 Solitary pulmonary nodule (principal); F51.01 Primary insomnia; J96.11 Chronic respiratory failure with hypoxia; J96.12 Chronic respiratory failure with hypercapnia; J41.0 Simple chronic bronchitis; R07.9 Chest pain, unspecified
CPT/HCPCS: 71046; 93005; 99212

== ENCOUNTER → 2024-05-17 15:53 | Outpatient (BNV) | payer MEDICARE, SELFPAY | PROVIDERS: PCP Internal Medicine; Visit Provider Internal Medicine Cardiovascular Disease | DX: J44.9 Chronic obstructive pulmonary disease, unspecified (principal) | CPT/HCPCS: 93010 ==

== ENCOUNTER → 2024-05-17 16:02 | Outpatient (BNV) | payer MEDICARE, SELFPAY | PROVIDERS: PCP Internal Medicine; Visit Provider Radiology Diagnostic Radiology | DX: J90 Pleural effusion, not elsewhere classified (principal); I51.7 Cardiomegaly | CPT/HCPCS: 71046 ==

== ENCOUNTER → 2024-06-07 14:59 | Outpatient (REF) | payer MEDICARE, SELFPAY ==
--- NOTE | 2024-06-07 15:03 | CA_ITS ---
Transthoracic Echocardiogram Patient (Last, First, Middle): Angela Cheney, Gender: Female Date of : 1945 Age: 78 Procedure Date: 06/07/2024 Procedure Type: Transthoracic Echocardiogram Location: OP Height: 162.56 cm Weight: 95.71 kg BSA: 2.00 m2 Heart Rate: bpm BP: 124 / 80 mmHg Boat Joiner Helper: Referring MD: Luke Grajeda MD Bonding Machine Tender: Yaron Moore MD Symptoms: I27.20 - Pulmonary hypertension, unspecified Study Quality: Technically Difficult ECG Rhythm: Sinus Conclusions: - 1. Normal LV ejection fraction 55-60% with mild LVH with impaired relaxation filling pattern 2. Mildly dilated left atrium 3. Cardiac valvular Dopplers within normal limits 4. Mildly elevated right ventricular systolic pressure 5. No gross pericardial effusion Findings Left Ventricle Normal left ventricular size and systolic function. There is mildly increased left ventricular wall thickness. The visually estimated ejection fraction is between 55-60%. Spectral Doppler is indicative of an impaired relaxation filling pattern. E/E prime ratio is between 8 and 15 consistent with indeterminate filling pressures. Right Ventricle The right ventricle was not well visualized. Atria The left atrium is mildly dilated. Interatrial shunt cannot be excluded. The right atrium was not well visualized. Aortic Valve There is mild calcification of the aortic valve. There is no aortic valve stenosis. There is no aortic valve regurgitation. Mitral Valve There is mild anterior and posterior mitral leaflet thickening. There is mild mitral annular calcification. There is trace mitral valve regurgitation. There is no mitral valve stenosis. Pulmonic Valve The pulmonic valve was not well visualized. Tricuspid Valve Likely normal tricuspid valve structure and function. There is mild tricuspid valve regurgitation. Normal right atrial pressure. Mild pulmonary hypertension is present. Great Vessels All visible segments of the aorta are normal in size. The pulmonary artery was not well visualized. There is no dilatation of the ascending aorta measuring 3.40 cm. Venous The inferior vena cava is normal in size and collapses greater than 50% with inspiration. Pericardium/Pleural There is no evidence of pericardial effusion. Prior Study Comparison Changes noted compared to prior study dated: 10/20/2018. RV systolic pressure is mildly elevated Measurements 2D Linear Measurements IVSd: 1.20 0.6-0.9/0.6-1.0 cm LVIDd: 4.44 3.9-5.3/4.2-5.9 cm LVIDd Index: 2.22 2.4-3.2/2.2-3.1 cm/m2 LVIDs: 2.83 2.0-3.6 cm LVPWd: 1.20 0.7-1.1 cm Ao Root: 3.10 2.1-3.5 cm LA Diam: 3.90 2.7-3.8/3.0-4.0 cm LAIDs Index: 1.95 1.5-2.3 cm/m2 LV Mass: 241.78 67-162/88-224 g LV Mass Index: 120.89 43-95/49-115 g/m2 LVOT Diam: 2.30 3.0+(-)1.3 cm 2D Systolic Function EF 4C: 61.40 >55% EF 2C: 55.60 >55% EF BiP: 59.00 >55% Mitral Valve MV Pk E: 0.67 MV PK A: 1.05 MV Decel Time: 245.00 E/A: 0.60 E'Lateral: 4.90 E'Medial: 4.35 E/E' Med: 15.50 E/E' Lat: 13.70 PHT: 72.00 MVA PHT: 3.06 Decel [place]: 2.75 Aortic Valve AoV Pk [place]: 1.53 AoV Mn [place]: 1.02 AoV VTI: 0.37 AoV Pk Grad: 9.00 Aov Mn Grad: 5.00 MINDY Cont.VTI: 2.69 LVOT LVOT Pk [place]: 0.95 LVOT Mn [place]: 0.68 LVOT VTI: 0.24 LVOT Pk Grad: 4.00 LVOT Mn Grad: 2.00 LVOT Diam: 2.30 LVOT Area: 4.15 Diastolic Function MV Pk E: 0.67 MV Pk A: 1.05 E/A: 0.60 E'Medial: 4.35 E/E' Med: 15.50 E' Laterial: 4.90 E/E' Lat: 13.70 Right Ventricle TAPSE (mm): 23.00 TVS' [place]: 14.00 Tricuspid Valve TR Pk [place]: 3.02 TR Pk Grad: 37.00 RA Press: 3.00 RVSP: 40.00 Great Vessels Aorta Ao Root-2D: 3.10 2.0-3.7 cm Ao Asc: 3.40 2.1-3.4 cm Pulmonary Valve PV Pk [place]: 1.14 Peak PV Grad: 5.00 Updated in Other Vendor System with Status of Final Yaron Moore MD electronically signed on 06/08/2024 11:57:12 AM with status of Final
--- OUTSIDE RECORDS SUMMARY | 2024-06-07 17:36 | XMS_ITS | Encounter Summary ---
Author Organization [facility] Address [address] [place] [address] Care Team Providers Care Restaurant Culinary Manager Name Role Phone Jam Mason MD Primary Care Provider [phone] Yecenia Leram MD Primary Care Provider Unavaila ble Richard Jackson DO Unavailable Unavailabl e Encounter Details Date Type Department Care Team Description 03/01/2018 [facility] Medical Records [address] [place] [id number] Luke Grajeda MD Social History Tobacco Use Types Packs/Day Years Used Date Smoking Tobacco: Passive Smo ke Exposure - Never Smoker Smokeless Tobacco: Never Alcohol Use Standard Drinks/Week Comments Yes 1 (1 standard drink = 0.6 oz pur e alcohol) Sex Assigned at Date Recorded Not on file documented as of this encounter Plan of Treatment Not on file documented as of this encounter Visit Diagnoses Not on filedocumented in this encounter Care Teams Restaurant Culinary Manager Relationship Specialty Start Date End Date Jam Mason MD PCP - General Internal Medicine 01/23/18 03/16/18 eYcenia Lerma MD PCP - General Internal Medicine 03/17/18 Richard Jackson DO 01/23/18 documented as of this encounter
--- OUTSIDE RECORDS SUMMARY | 2024-06-07 17:36 | XMS_ITS | Encounter Summary ---
Author Organization [employer] [facility] Address [address] [place] [address] Care Team Providers Care Checkroom Attendant Name Role Phone Jam Mason MD Primary Care Provider [phone] Yecenia Lerma MD Primary Care Provider Unavaila ble Richard Jackson DO Unavailable Unavailabl e Encounter Details Date Type Department Care Team Description 03/10/2018 Orders Only Medical Records [address] [place] [id number] Abstract, Provider Social History Tobacco Use Types Packs/Day Years Used Date Smoking Tobacco: Never Assessed Sex Assigned at Date Recorded Not on file documented as of this encounter Plan of Treatment Not on file documented as of this encounter Procedures Procedure Name Priority Date/Time Associated Diagnosis Comments OUTSIDE PLAIN FILM Routine 02/28/2018 documented in this encounter Results * OUTSIDE PLAIN FILM (02/28/2018) Provider Abstract RADIOLOGY documented in this encounter Visit Diagnoses Not on filedocumented in this encounter Care Teams Checkroom Attendant Relationship Specialty Start Date End Date Jam Mason MD PCP - General Internal Medicine 01/23/18 03/16/18 Yecenia Lerma MD PCP - General Internal Medicine 03/17/18 Richard Jackson DO 01/23/18 documented as of this encounter
--- OUTSIDE RECORDS SUMMARY | 2024-06-07 17:36 | XMS_ITS | Encounter Summary ---
Author Organization [facility] Address [address] [place] [address] Care Team Providers Care Bindery Production Manager Name Role Phone Jam Mason MD Primary Care Provider [phone] Yecenia Lerma MD Primary Care Provider Unavaila Richard Everett DO Unavailable Unavailabl e Reason for Visit * Reason Onset Date Comments Provider Call Back 03/05/2018 Encounter Details Date Type Department Care Team Description 03/05/2018 Telephone Pulmonology - [address] [place] [id number] Luke Grajeda MD Provider Call Back Social History Tobacco Use Types Packs/Day Years Used Date Smoking Tobacco: Never Assessed Sex Assigned at Date Recorded Not on file documented as of this encounter Miscellaneous Notes * Telephone Encounter - Angela Munoz M.A. - 03/06/2018 9:[address] Grajeda said you can scheduled with Erick, she is a new consult with us. * Telephone Encounter - Dave Doty - 03/05/2018 1:28 PM EST Patient was seen in the hospital by , Friday- Friday .. Patient states she was told toschedule a appointment for 4 week out , is next available date . Patient wouldlike to see if theres any sooner appointment Please call patient back at [phone] documented in this encounter Plan of Treatment Not on file documented as of this encounter Visit Diagnoses Not on filedocumented in this encounter Care Teams Bindery Production Manager Relationship Specialty Start Date End Date Jam Mason MD PCP - General Internal Medicine 01/23/18 03/16/18 Yecenia Lerma MD PCP - General Internal Medicine 03/17/18 Richard Jackson DO 01/23/18 documented as of this encounter
--- OUTSIDE RECORDS SUMMARY | 2024-06-07 17:36 | XMS_ITS | Clinical Summary ---
Author Organization [facility] Address [address] [place] [address] Care Team Providers Care Correspondence Renew Clerk Name Role Phone Yecenia Lerma MD Primary Care Provider Richard Unger DO Unavailable Unavailabl e Allergies No known active allergies Medications Medication Sig Dispensed Refills Start Date End Date Status atorvastatin (LIPITOR) 40 MG tablet Take 1 Tab by mouth at bedtime. 0 Active aspirin 81 MG tablet Take 1 Tab by mouth daily. 0 Active Calcium 600 MG Tab Take 1 Tab by mouth daily. 0 Active calcitRIOL (ROCALTROL) 0.25 MCG capsule Take 1 Cap by mouth daily. 0 Active [place]-3 Fatty Acids (FISH OIL) 600 MG Cap Take 1 Cap by mouth daily. 0 Active furosemide (LASIX) 40 MG tablet Take 1 Tab by mouth daily. 0 Active levothyroxine (SYNTHROID, LEVOTHROID) 150 MCG tablet Take 1 Tab by mouth daily. 0 Active lisinopril (PRINIVIL,ZESTRIL) 10 MG tablet Take 1 Tab by mouth daily. 0 Active metformin (GLUCOPHAGE-XR) 750 MG 24 hr tablet Take 1 Tab by mouth daily (with breakfast). 0 Active Metoprolol Succinate 50 MG Capsule ER 24 Hour Sprinkle Take 1 Cap by mouth daily. 0 Active Active Problems Problem Noted Date Pulmonary nodule 05/03/2018 Chronic respiratory failure with hypoxia 05/03/2018 MATHEUS (obstructive sleep apnea) 05/03/2018 Social History Tobacco Use Types Packs/Day Years Used Date Smoking Tobacco: Passive Smo ke Exposure - Never Smoker Smokeless Tobacco: Never Alcohol Use Standard Drinks/Week Comments Yes 1 (1 standard drink = 0.6 oz pur e alcohol) Sex Assigned at Date Recorded Not on file Last Filed Vital Signs Vital Sign Reading Time Taken Comments Blood Pressure 130/64 09/21/2018 3:37 PM EDT Pulse 68 09/21/2018 3:37 PM EDT Temperature - - Respiratory Rate 14 09/21/2018 3:37 PM EDT Oxygen Saturation 89% 09/21/2018 3:37 PM EDT 2lpmO2 Inhaled Oxygen Concentration - - Weight 93.4 kg (206 lb) 09/21/2018 3:37 PM EDT Height 157.5 cm (5' 2 ) 09/21/2018 3:37 PM EDT Body Mass Index 37.68 09/21/2018 3:37 PM EDT Plan of Treatment Health Maintenance Due Date Last Done Comments Covid-19 Vaccine (#1) 01/25/1946 DTAP/TDAP/TD (1 - Tdap) 07/25/1962 CHOLESTEROL SCREENING 1965 SHINGLES VACCINE (1 of 2) 07/25/1993 BONE DENSITY SCREENING 07/25/2008 PNEUMOCOCCAL VACCINE (1 - PCV) 07/25/2008 MAMMOGRAM 01/22/2019 01/22/2018 BMI CHECK/ADVISE 02/25/2024 09/21/2018, 06/04/2018, 05/01/2018 INFLUENZA (Season Ended) 2024 Care Teams Correspondence Renew Clerk Relationship Specialty Start Date End Date Yecenia Lerma MD PCP - General Internal Medicine 03/17/18 Richard Jackson DO 01/23/18
--- OUTSIDE RECORDS SUMMARY | 2024-06-07 17:36 | XMS_ITS | Encounter Summary ---
Author Organization [employer] [facility] Address [address] [place] [address] Care Team Providers Care Member Of Congress Name Role Phone Yecenia Lerma MD Primary Care Provider Unavaila Richard Everett DO Unavailable Unavailabl e Encounter Details Date Type Department Care Team Description 05/14/2018 Release of Information Medical Records [address] [place] [id number] Abstract, Provider Social History Tobacco Use Types [...] on filedocumented in this encounter Care Teams Member Of Congress Relationship Specialty Start Date End Date Yecenia Lerma MD PCP - General Internal Medicine 03/17/18 Richard Jackson DO 01/23/18 documented as of this encounter
--- OUTSIDE RECORDS SUMMARY | 2024-06-07 17:36 | XMS_ITS | Clinical Summary ---
Author Organization [facility] it Address [address] [place] [address] Care Team Providers Care Director Technical Name Role Phone Yecenia Lerma MD Primary Care Provider [phone] Social History Tobacco Use Types Packs/Day Years [...] Vaccines (1 of 2) 07/25/1993 RSV Immunization Adult Patie nts (1 - 1-dose 75+ series) 07/25/2018 Depression Screening 01/26/2022 Falls Risk Assessment 01/26/2022 Osteoporosis Screening (Bone Density Screening) 01/26/2022 Social Influencers of Health Screening 01/26/2022 COVID-19 Vaccine (2023-2 5 season) 2023 Influenza Vaccine (Season Ended) 2024 HIB Vaccines Aged Out No longer eligi [...] age to complete this topic Meningococcal B Vaccine Aged Out No l onger eligible based on patient's age to complete this topic RSV Immunization Patients Un bharat 20 months Aged Out No longer eligible b ased on patient's age to complete this topic Varicella Vaccines Aged Out No longer eligible based on patient's age to complete this topic Care Teams Director Technical Relationship Specialty Start Date End Date Yecenia Lerma MD PCP - General Internal Medicine 03/17/18
--- OUTSIDE RECORDS SUMMARY | 2024-06-07 17:36 | XMS_ITS | Encounter Summary ---
Author Organization [facility] Address [address] [place] [address] Care Team Providers Care Manager Operations Research Name Role Phone Yecenia Lerma MD Primary Care Provider Unavaila Richard Everett DO Unavailable Unavailabl e Encounter Details Date Type Department Care Team Description 05/28/2018 Orders Only Medical Records [address] [place] [address] Abstract, Provider Pulmonary nodule Social History Tobacco Use Types Packs/Day Years [...] Procedure Name Priority Date/Time Associated Diagnosis Comments CAT SCAN OF CHEST NO CONTRAST Routine 05/26/2018 Pulmonary nodule documented in this encounter Results * CAT SCAN OF CHEST NO CONTRAST (05/26/2018) Luke Grajeda MD CT SCANS documented in this encounter Visit Diagnoses Diagnosis Pulmonary nodule Solitary pulmonary nodule documented in this encounter Care Teams Manager Operations Research Relationship Specialty Start Date End Date Yecenia Lerma MD PCP - General Internal Medicine 03/17/18 Richard Jackson DO 01/23/18 documented as of this encounter
--- OUTSIDE RECORDS SUMMARY | 2024-06-07 17:36 | XMS_ITS | Encounter Summary ---
Author Organization [facility] [facility] Address [address] [place] [address] Care Team Providers Care Gwot Ia/Ilo Intelligence Support Name Role Phone Yecenia Lerma MD Primary Care Provider Richard Unger DO Unavailable Unavailabl e Encounter Details Date Type Department Care Team Description 09/18/2018 Orders Only Pulmonology - [address] [place] [id number] Luke Grajeda MD MATHEUS (obstructive sleep apnea); Chronic respiratory failure with hypoxia (HCC); Pulmonary nodule Social History Tobacco Use Types [...] CAT SCAN OF CHEST NO CONTRAST Routine 09/18/2018 MATHEUS (obstructive sleep apnea) Chronic respiratory failure with hypoxia (HCC) Pulmonary nodule documented in this encounter Results * CAT SCAN OF CHEST NO CONTRAST (09/18/2018) Luke Grajeda MD CT SCANS [facility] documented in this encounter Visit Diagnoses Diagnosis MATHEUS (obstructive sleep apnea) Obstructive sleep apnea (adult) (pediatric) Chronic respiratory failure with hypoxia (HCC) Chronic respiratory failure Pulmonary nodule Solitary pulmonary nodule documented in this encounter Care Teams Gwot Ia/Ilo Intelligence Support Relationship Specialty Start Date End Date Yecenia Lerma MD PCP - General Internal Medicine 03/17/18 Richard Jackson DO 01/23/18 documented as of this encounter
== END ==
LOC: HO.CARD 14:59
PROVIDERS: PCP Internal Medicine; Visit Provider Hospitalist
DX: I27.20 Pulmonary hypertension, unspecified (principal)
CPT/HCPCS: 93306

== ENCOUNTER → 2024-06-07 15:03 | Outpatient (BNV) | payer MEDICARE, SELFPAY | PROVIDERS: PCP Internal Medicine; Visit Provider Internal Medicine Cardiovascular Disease | DX: I27.20 Pulmonary hypertension, unspecified (principal); I35.8 Other nonrheumatic aortic valve disorders; I34.81 Nonrheumatic mitral (valve) annulus calcification; I36.1 Nonrheumatic tricuspid (valve) insufficiency | CPT/HCPCS: 93306 ==

== ENCOUNTER 2024-06-09 09:11 | Outpatient (REF) | payer MEDICARE, SELFPAY ==
--- OUTSIDE RECORDS SUMMARY | 2024-06-09 09:59 | XMS_ITS | Clinical Summary ---
Author Organization [facility] it Address [address] [place] [address] Care Team Providers Care Kier Hand Name Role Phone Yecenia Lerma MD Primary Care Provider [phone] Social History Tobacco Use Types Packs/Day Years [...] age to complete this topic Care Teams Kier Hand Relationship Specialty Start Date End Date Yecenia Lerma MD PCP - General Internal Medicine 03/17/18
[2024-06-09 10:09] LABS: MANUAL DIFF FLAG NO
[2024-06-09 10:19] LABS: Basophils Percent Auto 0.3 % (0-2); Eosinophils Absolute Auto 0.5 X10*3/uL (0.0-0.4); Eosinophils Percent Auto 5.2 % (0-4); Hematocrit 35.8 % (37.0-47.0); Imm Gran Abs Auto 0.03 X10*3/uL (0.00-0.03); Imm Gran Pct Auto 0.3 % (0.0-0.4); Lymphocytes Absolute Auto 1.7 X10*3/uL (1.2-4.9); Lymphocytes Percent Auto 18.8 % (20-40); Mean Corpuscular HGB Conc 30.7 g/dl (31.0-35.0); Mean Corpuscular Hemoglobin 28.8 pg (27.0-33.0); Mean Corpuscular Volume 93.7 fL (80.0-98.0); Mean Platelet Volume 11.9 fL (9.4-12.3); Monocytes Absolute Auto 0.7 X10*3/uL (0.1-1.2); Monocytes Percent Auto 7.8 % (2-11); Neutrophils Absolute Auto 6.1 x10*3/uL (2.0-8.3); Neutrophils Percent Auto 67.6 % (45-73); Platelet Count 189 X10*3/uL (160-400); Red Blood Count 3.82 X10*6/uL (4.20-5.50)
[2024-06-09 10:30] LABS: Estimated Average Glucose 194 mg/dL; Hemoglobin A1C 203.3194 umol/L; Hemoglobin A1c % 8.4 % (<6.0)
[2024-06-09 10:53] LABS: Alanine Aminotransferase 18 U/L (0-31); Albumin Level 3.9 g/dL (3.5-5.0); Alkaline Phosphatase 74 U/L (39-117); Anion Gap 14 (12-20); Aspartate Amino Transferase 16 U/L (5-31); Bilirubin Total 0.4 mg/dL (0.0-1.0); Blood Urea Nitrogen 35 mg/dL (9-16); Calcium 8.1 mg/dL (8.4-10.2); Carbon Dioxide 36 mmol/L (22-29); Chloride 97 mmol/L (96-108); Cholesterol 193 mg/dL (<200); Estimated Glomerular Filt Rate 35; Glucose Fasting 215 mg/dL (60-99); HDL Cholesterol 43 mg/dL (>40); LDL Cholesterol Calculated 110 mg/dL (<100); Potassium 5.3 mmol/L (3.3-5.1); Sodium 142 mmol/L (135-145); Total Protein 7.4 g/dL (6.5-8.0); Triglycerides 202 mg/dL (<150)
[2024-06-09 14:11] LABS: Creatinine Urine 37.99 mg/dL; Microalbumin Urine < 5.0 mg/L
== END 2024-06-09 09:12 | disposition home or self-care (01) ==
LOC: HO.HMGCLDS 09:11
PROVIDERS: PCP Internal Medicine; Visit Provider Internal Medicine
DX: N18.30 Chronic kidney disease, stage 3 unspecified (principal); E78.5 Hyperlipidemia, unspecified; J41.0 Simple chronic bronchitis; J96.11 Chronic respiratory failure with hypoxia; J96.12 Chronic respiratory failure with hypercapnia; E11.9 Type 2 diabetes mellitus without complications
CPT/HCPCS: 36415; 80053; 80061; 82043; 82570; 83036; 85025

== ENCOUNTER 2024-06-15 10:59 | Outpatient (AMB) | payer MEDICARE, SELFPAY ==
[2024-06-15 11:33] VITALS: BP 122/60; PULSE 74; RESP 18; TEMP 37.1; O2SAT 95; BMI 39.1
--- NOTE | 2024-06-15 11:33 | MHC.PC.OV ---
Vital Signs 06/15/24 11:33 Height 5 ft 3 in Weight 221 lb BMI 39.1 BP 122/60 Blood Pressure Location Rt brachial Position Sitting Respiration 18 Pulse 74 Pulse Source Pulse Oximeter Temp 98.7 F Temp Source Oral Pulse Oximetry (%) 95 Oxygen Delivery Method Nasal Cannula Intake Visit Reasons: 3 months follow up Intake Note: Pt is here today for 3 months follow up visit on labs. Allergies No Known Allergies Allergy (Verified 06/15/24 11:33) Tobacco use date assessed: 06/15/24 Fall risk assessment: No Falls in past year Last assessed Fall Risk: 06/15/24 Dental Screening Dental Screen Date: 03/24/24 HPI 3 months follow up HPI Details Patient presents for the follow-up of type 2 diabetes hypertension hyperlipidemia hypothyroidism right-sided heart failure and chronic hypoxia on supplemental O2. Patient has not been compliant with ADA diet and gaining weight. [facility] Medical History Chest pain Annual physical exam Hypoxia Hypothyroid Hyperlipidemia Overweight DM type 2 (diabetes mellitus, type 2) Pulmonary nodule Insomnia Chronic respiratory failure COPD (chronic obstructive pulmonary disease) Surgical History H/O colonoscopy Family History Father No problems noted. Mother Stroke Social History Housing: House Alcohol intake: never Patient Tobacco Use Status: Never used Tobacco e-Cigarette/Vaping Use: Never Used service: No Current occupational status: retired Cognitive needs: No Hearing needs: No Vision needs: Yes Questionnaire Thrive Questionnaire Date Thrive assessed: 06/15/24 UNRULY-7 AMB Questionnaire UNRULY-7 Date UNRULY - 7 assessed: 03/24/24 Source: Developed by Drs. Srinivasa Hassan, Oriana Mercado, Florentin Díaz and colleagues, with an educational caryl from [employer]. Review of Systems Const All systems reviewed & are unremarkable except as noted in HPI and below ENT Reports no additional complaints Card Reports no additional complaints Resp Reports no additional complaints GI Reports no additional complaints Reports no additional complaints Physical exam (Primary Care) Vital Signs: Last Vital Signs Temp 98.7 F 06/15/24 11:33 Pulse 74 06/15/24 11:33 Resp 18 06/15/24 11:33 BP 122/60 06/15/24 11:33 Pulse Ox 95 06/15/24 11:33 Oxygen Delivery Method Nasal Cannula 06/15/24 11:33 BMI result Body Mass Index 39.1 Tobacco/Smoking Status: Tobacco use Status Tobacco use date assessed 06/15/24 06/15/24 11:33 Patient Tobacco Use Status Never used Tobacco 06/15/24 11:33 e-Cigarette/Vaping Use Never Used 06/15/24 11:33 Thrive Assessment: Date of Thrive Assessment Date Thrive assessed 06/15/24 06/15/24 11:33 Const General: no acute distress HENMT Head: Yes normal to inspection Eyes General: appearance normal, both eyes and all related structures Resp Effort & Inspection: normal respiratory effort Auscultation: clear to auscultation bilaterally Cardio Rhythm: regular rhythm Heart sounds: S1 normal heart sound present and S2 normal heart sound present GI Inspection: Yes normal to inspection Palpation (GI): Soft to palpation Percussion: Yes normal to percussion Auscultation: normal bowel sounds Extrem Other: 1+ pitting edema bilaterally Immunizations pneumoc 20-spencer conj-dip cr(PF) 0.5 mL IM syringe Performing Provider: Yecenia Lerma MD Performing Location: [facility] Administered by: JOSE ALBERTO Alford on 06/15/24 12:47 Dose Route Admin Location Dispensed Lot Number Expiration Date [facility] Plush Weaver 0.5 mL IM Left Deltoid 0.5 mL [id number] 04/23/25 [employer] VIS Given Date VIS Provided VIS Publication Date 06/15/24 Single Vaccine 21 Eligibility Eligibility Date Funding Source Not [facility] Eligible 06/15/24 Private Coding Level of Care Code Est Pt Level 4 (23061) Diagnoses CKD (chronic kidney disease) stage 3, GFR 30-59 ml/min N18.30 DM type 2 (diabetes mellitus, type 2) E11.9 Hypertension I10 Assessment & Plan Assessment & Plan (1) CKD (chronic kidney disease) stage 3, GFR 30-59 ml/min: Code(s): N18.30 - Chronic kidney disease, stage 3 unspecified Category: Medical Plan: Monitor renal function avoid nephrotoxins, patient was advised to increase fluid intake and repeat basic metabolic panel in 1 week (2) DM type 2 (diabetes mellitus, type 2): Comment: Patient could not tolerate more than 850 mg of metformin because of diarrhea, hypoglycemia on glipizide, poorly controlled due to noncompliance with the diet Code(s): E11.9 - Type 2 diabetes mellitus without complications Category: Medical Plan: A1c is 8.4. ADA diet increase exercise decreasing caloric intake and weight loss discussed with the patient. Patient could not afford Dysonics or RF Arraysxiga. GLP 1 agonist was recommended but patient is going check with her insurance coverage. (3) Hypertension: Code(s): I10 - Essential (primary) hypertension Category: Medical Plan: Continue current medications Orders: Orders Comprehensive Cecil. Panel Fast 3 Months E11.9 - Type 2 diabetes mellitus without complications, I10 - Essential (primary) hypertension, N18.30 - Chronic kidney disease, stage 3 unspecified Complete Blood Count Auto Diff 3 Months E11.9 - Type 2 diabetes mellitus without complications, I10 - Essential (primary) hypertension, N18.30 - Chronic kidney disease, stage 3 unspecified Hemoglobin A1c 3 Months E11.9 - Type 2 diabetes mellitus without complications, I10 - Essential (primary) hypertension, N18.30 - Chronic kidney disease, stage 3 unspecified Lipid Panel 3 Months E11.9 - Type 2 diabetes mellitus without complications, I10 - Essential (primary) hypertension, N18.30 - Chronic kidney disease, stage 3 unspecified Microalbumin, Random (w Creat) 3 Months E11.9 - Type 2 diabetes mellitus without complications, I10 - Essential (primary) hypertension, N18.30 - Chronic kidney disease, stage 3 unspecified Basic Metabolic Panel 1 Week N18.30 - Chronic kidney disease, stage 3 unspecified Pneumococcal 20 Immunization Today Z23 - Encounter for immunization Medications: New calcitriol 0.25 mcg PO DAILY 90 caps 3RF Refilled levothyroxine 125 mcg PO DAILY 90 tabs 3RF furosemide 40 mg PO DAILY 90 tabs 3RF metformin 850 mg PO DAILY 90 tabs 3RF metoprolol succinate ER 50 mg PO DAILY 90 tabs 3RF I10 - Essential (primary) hypertension umeclidinium-vilanterol 62.5-25 mcg/actuation (Anoro Ellipta) 1 inh inhalation DAILY 60 ea 11RF J44.9 - Chronic obstructive pulmonary disease, unspecified atorvastatin 40 mg PO DAILY 90 tabs 3RF lisinopril 10 mg PO DAILY 90 tabs 3RF Discontinued empagliflozin (Jardiance) Discontinued Reason: Doctor's Order 10 mg PO DAILY 90 tabs 1RF
--- OUTSIDE RECORDS SUMMARY | 2024-06-15 13:07 | XMS_ITS | Encounter Summary ---
Author Organization [facility] Address [address] [place] [address] Care Team Providers Care Medical Billing Supervisor Name Role Phone Yecenia Lerma MD Primary Care Provider Unavaila ble Richard Jackson DO Unavailable Unavailabl e Encounter Details Date Type Department Care Team Description 04/09/2018 Release of Information Medical Records [address] [place] [id number] Abstract, Provider Social History Tobacco Use Types Packs/Day Years Used Date Smoking Tobacco: Never Assessed Sex Assigned at Date Recorded Not on file documented as of this encounter Plan of Treatment Not on file documented as of this encounter Visit Diagnoses Not on filedocumented in this encounter Care Teams Medical Billing Supervisor Relationship Specialty Start Date End Date Yecenia Lerma MD PCP - General Internal Medicine 03/17/18 Richard Jackson DO 01/23/18 documented as of this encounter
--- OUTSIDE RECORDS SUMMARY | 2024-06-15 13:07 | XMS_ITS | Clinical Summary ---
Author Organization [facility] Address [address] [place] [address] Care Team Providers Care Disposal Worker Name Role Phone Yecenia Lerma MD Primary [...] 1 Cap by mouth daily. 0 Active [place]-3 Fatty Acids (FISH OIL) 600 MG Cap [...] 05/01/2018 INFLUENZA (Season Ended) 2024 Care Teams Disposal Worker Relationship Specialty Start Date End Date Yecenia Lerma MD PCP - General Internal Medicine 03/17/18 Richard Jacksno DO 01/23/18
--- OUTSIDE RECORDS SUMMARY | 2024-06-15 13:07 | XMS_ITS | Encounter Summary ---
Author Organization [facility] Address [address] [place] [address] Care Team Providers Care Jailor Name Role Phone Jam Mason MD Primary Care Provider [phone] Yecenia Lerma MD Primary Care Provider Unavaila Richard Everett DO Unavailable Unavailabl e Reason for Visit * Reason Onset Date Comments Provider Call Back 03/05/2018 Encounter Details Date Type Department Care Team Description 03/05/2018 Telephone Pulmonology - [address] [place] [phone] Luke Grajeda MD Provider Call Back [...] sooner appointment Please call patient back at [phone] documented in this encounter Plan of Treatment Not on file documented as of this encounter Visit Diagnoses Not on filedocumented in this encounter Care Teams Jailor Relationship Specialty Start Date End Date Jam Mason MD PCP - General Internal Medicine 01/23/18 03/16/18 Yecenia Lerma MD PCP - General Internal Medicine 03/17/18 Richard Jackson DO 01/23/18 documented as of this encounter
--- OUTSIDE RECORDS SUMMARY | 2024-06-15 13:07 | XMS_ITS | Encounter Summary ---
Author Organization [facility] [facility] Address [address] [place] [address] Care Team Providers Care Blue Split Trimmer Name Role Phone Yecenia Lerma MD Primary Care Provider Unavaila Richard Everett DO Unavailable Unavailabl e Encounter Details Date Type Department Care Team Description 05/28/2018 Orders Only Medical Records [address] [place] [id number] Abstract, Provider Pulmonary nodule Social History Tobacco [...] nodule documented in this encounter Care Teams Blue Split Trimmer Relationship Specialty Start Date End Date Yecenia Lerma MD PCP - General Internal Medicine 03/17/18 Richard Jackson DO 01/23/18 documented as of this encounter
--- OUTSIDE RECORDS SUMMARY | 2024-06-15 13:07 | XMS_ITS | Clinical Summary ---
Author Organization [facility] it Address [address] [place] [address] Care Team Providers Care Motorized Squad Commanding Officer Name Role Phone Yecenia Lerma MD Primary Care Provider [phone] Social History Tobacco Use Types Packs/Day Years [...] age to complete this topic Care Teams Motorized Squad Commanding Officer Relationship Specialty Start Date End Date Yecenia Lerma MD PCP - General Internal Medicine 03/17/18
--- OUTSIDE RECORDS SUMMARY | 2024-06-15 13:07 | XMS_ITS | Encounter Summary ---
Author Organization [facility] Address [address] [place] [address] Care Team Providers Care Transplant Nurse Practitioner Name Role Phone Jam Mason MD Primary Care Provider [phone] Yecenia Lerma MD Primary Care Provider Unavaila ble Richard Jackson DO Unavailable Unavailabl e Encounter Details Date Type Department Care Team Description 03/10/2018 Orders Only Medical Records [address] [place] [address] Abstract, Provider Social History Tobacco Use Types [...] on filedocumented in this encounter Care Teams Transplant Nurse Practitioner Relationship Specialty Start Date End Date Jam Mason MD PCP - General Internal Medicine 01/23/18 03/16/18 Yecenia Lerma MD PCP - General Internal Medicine 03/17/18 Richard Jackson DO 01/23/18 documented as of this encounter
--- OUTSIDE RECORDS SUMMARY | 2024-06-15 13:07 | XMS_ITS | Encounter Summary ---
Author Organization [facility] Address [address] [place] [address] Care Team Providers Care Senior Software Quality Analyst Name Role Phone Jam Mason MD Primary Care Provider [phone] Yecenia Lerma MD Primary Care Provider Unavaila ble Richard Jackson DO Unavailable Unavailabl e Encounter Details Date Type Department Care Team Description 03/01/2018 [facility] Medical Records [address] [place] [address] Luke Grajeda MD Social History Tobacco Use [...] on filedocumented in this encounter Care Teams Senior Software Quality Analyst Relationship Specialty Start Date End Date Jam Mason MD PCP - General Internal Medicine 01/23/18 03/16/18 Yecenia Lerma MD PCP - General Internal Medicine 03/17/18 Richard Jackson DO 01/23/18 documented as of this encounter
== END 2024-06-15 13:26 | disposition home or self-care (01) ==
LOC: HO.HMCC 11:00
PROVIDERS: PCP Internal Medicine; Visit Provider Internal Medicine
DX: N18.30 Chronic kidney disease, stage 3 unspecified (principal); E11.9 Type 2 diabetes mellitus without complications; I10 Essential (primary) hypertension; Z23 Encounter for immunization

== ENCOUNTER → 2024-06-15 10:59 | Outpatient (BNVA) | payer MEDICARE, SELFPAY | PROVIDERS: PCP Internal Medicine; Visit Provider Internal Medicine | DX: E78.5 Hyperlipidemia, unspecified (principal); E03.9 Hypothyroidism, unspecified; R09.02 Hypoxemia; E11.22 Type 2 diabetes mellitus with diabetic chronic kidney disease; I13.0 Hypertensive heart and chronic kidney disease with heart failure and stage 1 through stage 4 chronic kidney disease, or unspecified chronic kidney disease; I50.9 Heart failure, unspecified; N18.30 Chronic kidney disease, stage 3 unspecified; J44.9 Chronic obstructive pulmonary disease, unspecified; Z23 Encounter for immunization; Z99.81 Dependence on supplemental oxygen | CPT/HCPCS: 90471; 90677; 99212 ==

== ENCOUNTER 2024-06-30 09:16 | Outpatient (REF) | payer MEDICARE, SELFPAY ==
--- OUTSIDE RECORDS SUMMARY | 2024-06-30 09:52 | XMS_ITS | Encounter Summary ---
Author Organization [employer] [facility] Address [address] [place] [address] Care Team Providers Care Bacon Slicer Name Role Phone Yecenia Lerma MD Primary Care Provider Richard Unger DO Unavailable Unavailabl e Encounter Details Date Type Department Care Team Description 09/18/2018 Orders Only Pulmonology - [address] [place] [phone] Luke Grajeda MD MATHEUS (obstructive sleep apnea); [...] nodule documented in this encounter Care Teams Bacon Slicer Relationship Specialty Start Date End Date Yecenia Lerma MD PCP - General Internal Medicine 03/17/18 Richard Jackson DO 01/23/18 documented as of this encounter
--- OUTSIDE RECORDS SUMMARY | 2024-06-30 09:52 | XMS_ITS | Encounter Summary ---
Author Organization [facility] Address [address] [place] [address] Care Team Providers Care Ebay Reseller Name Role Phone Yecenia Lerma MD Primary Care Provider Unavaila Richard Everett DO Unavailable Unavailabl e Encounter Details Date Type Department Care Team Description 10/06/2018 Release of Information Medical Records [address] [place] [address] Abstract, Provider Social History Tobacco Use Types [...] on filedocumented in this encounter Care Teams Ebay Reseller Relationship Specialty Start Date End Date Yecenia Lerma MD PCP - General Internal Medicine 03/17/18 Richard Jackson DO 01/23/18 documented as of this encounter
--- OUTSIDE RECORDS SUMMARY | 2024-06-30 09:52 | XMS_ITS | Clinical Summary ---
Author Organization [facility] it Address [address] [place] [address] Care Team Providers Care Chief Of Police Name Role Phone Yecenia Lerma MD Primary Care Provider [phone] Social History Tobacco Use Types Packs/Day Years [...] age to complete this topic Care Teams Chief Of Police Relationship Specialty Start Date End Date Yecenia Lerma MD PCP - General Internal Medicine 03/17/18
--- OUTSIDE RECORDS SUMMARY | 2024-06-30 09:52 | XMS_ITS | Encounter Summary ---
Author Organization [facility] Address [address] [place] [address] Care Team Providers Care Dtp Operator Name Role Phone Yecenia Lerma MD Primary Care Provider Unavaila Richard Everett DO Unavailable Unavailabl e Encounter Details Date Type Department Care Team Description 05/14/2018 Release of Information Medical Records [address] [place] [address] Abstract, Provider Social History Tobacco Use Types [...] on filedocumented in this encounter Care Teams Dtp Operator Relationship Specialty Start Date End Date Yecenia Lerma MD PCP - General Internal Medicine 03/17/18 Richard Jackson DO 01/23/18 documented as of this encounter
--- OUTSIDE RECORDS SUMMARY | 2024-06-30 09:53 | XMS_ITS | Encounter Summary ---
Author Organization [facility] Address [address] [place] [address] Care Team Providers Care Cardiac Monitor Technician Name Role Phone Jam Mason MD Primary Care Provider [phone] Yecenia Lerma MD Primary Care Provider Unavaila ble Richard Jackson DO Unavailable Unavailabl e Encounter Details Date Type Department Care Team Description 03/10/2018 Orders Only Medical Records [address] [place] [address] Abstract, Provider Social History Tobacco Use Types [...] on filedocumented in this encounter Care Teams Cardiac Monitor Technician Relationship Specialty Start Date End Date Jam Mason MD PCP - General Internal Medicine 01/23/18 03/16/18 Yecenia Lerma MD PCP - General Internal Medicine 03/17/18 Richard Jackson DO 01/23/18 documented as of this encounter
--- OUTSIDE RECORDS SUMMARY | 2024-06-30 09:53 | XMS_ITS | Encounter Summary ---
Author Organization [facility] Address [address] [place] [address] Care Team Providers Care Sueding And Buffing Machine Operator Name Role Phone Yecenia Lerma MD Primary Care Provider Richard Unger DO Unavailable Unavailabl e Reason for Visit * Reason Onset Date Comments Note, Other 06/25/2018 Encounter Details Date Type Department Care Team Description 06/25/2018 Telephone Pulmonology - [address] [place] [phone] Luke Grajead MD Note, Other Social History Tobacco Use Types Packs/Day Years Used Date Smoking Tobacco: Passive Smo ke Exposure - Never Smoker Smokeless Tobacco: Never Alcohol Use Standard Drinks/Week Comments Yes 1 (1 standard drink = 0.6 oz pur e alcohol) Sex Assigned at Date Recorded Not on file documented as of this encounter Miscellaneous Notes * Telephone Encounter - Vinita Viera M.A. - 06/25/2018 4:40 PM EDT Patient demographics faxed to [facility]. * Telephone Encounter - Dawn Grajeda - 06/25/2018 2:22 PM EDT [facility] its calling the need the patient demography please fax documented in this encounter Plan of Treatment Not on file documented as of this encounter Visit Diagnoses Not on filedocumented in this encounter Care Teams Sueding And Buffing Machine Operator Relationship Specialty Start Date End Date Yecenia Lerma MD PCP - General Internal Medicine 03/17/18 Richard Jackson DO 01/23/18 documented as of this encounter
--- OUTSIDE RECORDS SUMMARY | 2024-06-30 09:53 | XMS_ITS | Clinical Summary ---
Author Organization [facility] Address [address] [place] [address] Care Team Providers Care Computer Numerical Control Programmer Name Role Phone Yecenia Lerma MD Primary [...] 1 Cap by mouth daily. 0 Active [place]-3 Fatty Acids (FISH OIL) 600 MG Cap [...] 05/01/2018 INFLUENZA (Season Ended) 2024 Care Teams Computer Numerical Control Programmer Relationship Specialty Start Date End Date Yecenia Lerma MD PCP - General Internal Medicine 03/17/18 Richard Jackson DO 01/23/18
[2024-06-30 10:54] LABS: Anion Gap 16 (12-20); Blood Urea Nitrogen 28 mg/dL (9-16); Calcium 8.5 mg/dL (8.4-10.2); Carbon Dioxide 36 mmol/L (22-29); Chloride 97 mmol/L (96-108); Estimated Glomerular Filt Rate 44; Glucose Random 190 mg/dL (60-115); Potassium 5.3 mmol/L (3.3-5.1); Sodium 144 mmol/L (135-145)
== END 2024-06-30 09:17 | disposition home or self-care (01) ==
LOC: HO.HMGCLDS 09:16
PROVIDERS: PCP Internal Medicine; Visit Provider Internal Medicine
DX: N18.30 Chronic kidney disease, stage 3 unspecified (principal)
CPT/HCPCS: 36415; 80048

== ENCOUNTER 2024-08-13 14:59 | Outpatient (AMB) | payer MEDICARE, SELFPAY ==
[2024-08-13 15:05] VITALS: BP 158/64; PULSE 72; O2SAT 92; BMI 38.3
--- NOTE | 2024-08-13 15:05 | A.OFFVIS_ITS ---
Vital Signs 08/13/24 15:05 Height 5 ft 3 in Weight 216 lb 0.848 oz BMI 38.3 BP 158/64 H Blood Pressure Location Lt brachial Position Sitting Pulse 72 Pulse Source Pulse Oximeter Pulse Oximetry (%) 92 Oxygen Delivery Method Nasal Cannula Oxygen Flow Rate 2 Intake Visit Reasons: Shortness of breath Allergies No Known Allergies Allergy (Verified 08/13/24 15:10) HPI Comments Details: The patient is a 79-year-old woman with known COPD, obstructive sleep apnea and chronic hypoxic respiratory failure. The patient likely has a combination of COPD, hypoventilation and atelectasis along with a mild degree of diastolic dysfunction which may all be contributing to her underlying hypoxia. She is using her battery powered portable oxygen concentrator with activity with good effect. She is using the oxygen at nighttime. She tried and failed CPAP. She did have a CT scan of the chest back in May 2018 demonstrating stable pulmonary nodule. Her next CAT scan is May 2019. 07/23/2019 patient has a telephone visit. Overall she is feels about the same. Still having dyspnea on exertion. [id number] severity. She is using the oxygen with good effect. She is maintaining the oxygen with activity and with sleep. She is waking up tired at times. Does have daytime drowsiness she says her energy levels are going down. The patient is not interested in CPAP therapy or read doing the sleep study at this time. She does have underlying pulmonary nodules. She was supposed to have a CT scan in May 2019. However, with the COVID-19 infections will postpone it to July of 2019. 10/25/2021 the patient is here for pulmonary follow-up visit. Overall she is doing better. The Anoro inhaler has improved her dyspnea symptoms. She feels her airways are more open and she is able to expectorate better. She continues use the oxygen with good effect. She does have a POC when she is outside of the home and she does have the continues oxygen she can use when she is in the home. We did review her blood work. She did have a blood gas done back in 2018 demonstrating a pCO2 of 53 at that time. Her PO2 was slightly decreased some upper the patient did have also a more recent blood work including a basal metabolic panel. Her bicarb 37. Explained to the patient that is likely that she has additional hypercarbia. Explained to the patient and also her daughter the concerns of elevations in the CO2. Clinically she is doing okay right now sometimes she is a little bit more drowsy as per her daughter. She did try using CPAP in the past and she did not tolerated at all. Therefore the patient is reluctant to consider any type of PAP therapy. Will continue with the Anoro since is helping and will also plan to repeat her ABG during the next visit. If her daughter notices increased daytime drowsiness confusion or any other concerning finding she is to call our office for an earlier assessment were we can do the ABG had earlier time. 07/05/2022 the patient is here for pulmonary follow-up visit. Overall the patient is with a lot better on the Anoro inhaler. She feels like her dyspnea is improved. She continues use her oxygen. Back in March she developed COVID-19. She did develop a bad week of worsening respiratory symptoms. She had increased her oxygen to 3 L. However, even when she got better she has kept up a little higher at 2.5 L. She is monitored she should go down to 2 L at this time. She did have a blood gas and we did look at it. On that 2 L pulse her PO2 was actually 74 mmHg. Therefore she probably can go down to 2 L as long as her pulse ox is above 90-92%. The patient also had her pCO2 which was at 51 mmHg which is actually improved from before. The patient appears to be stabilizing. No recent imaging studies. Her last CT scan demonstrated stable pulmonary nodules have the numerous years. At this point the patient through well time to follow-up in a year's time with a chest x-ray read if she has any issues prior to that she is to call the office for an earlier evaluation. 05/17/2024 the patient is here for pulmonary follow-up visit. The patient overall has been doing okay from a respiratory status. She continues on the oxygen with good effect. She has been complaining of off and on epigastric and lower chest discomfort in the substernal area. Does not seem to be reproducible. Is not associated with activity although she is pretty sedentary at this time specially with the winter months. The patient has not had a chest x-ray and some time and nor I do see an EKG. She will have those done today. As far as my examination the patient does appear to have some epigastric discomfort and therefore gastritis or esophagitis is in the differential. So she will start PPI for now. Hopefully her EKG and x-ray are okay. Also barium swallow may be helpful to better assess the area. If her EKGs abnormal she will need further follow-up for that. 08/13/2024 the patient is here for pulmonary follow-up visit. Overall she is doing a little bit better. The subsequently chest discomfort is now gone. The PPI did help. She opted not to have the barium swallow. She did have a chest x-ray demonstrating increased cardiac size and engorgement of the pulmonary vascular vessels. Likely from volume overload status. In addition to that she did have an echocardiogram that was consistent with that demonstrating some LVH and some diastolic dysfunction along with some pulmonary hypertension likely secondary to the volume overload status. She does take diuretics. Recently had blood work and she did have a slight bump in her creatinine at 1 point but then it normalized. We did talk about dietary indiscretions. She needs to be careful with both sodium and also potassium as it was elevated her blood work as well. She is going to work on those dietary changes. We also talked about making sure she weighs herself and monitors closely for any worsening lower extremity edema as she may need additional medication. She is wondering about the omeprazole if this is something she should stay on. I explained to him that she can always stop it or we can try lower dose. They are willing to try lower dose 1st before stopping it altogether. She continues use the oxygen with good effect. Will plan to follow-up in 6 months. If she has any issues prior to this visit she will call for an earlier assessment. COUNTS INCLUDE 234 BEDS AT THE [facility] Medical History Chest pain Annual physical exam Hypoxia Hypothyroid Hyperlipidemia Overweight DM type 2 (diabetes mellitus, type 2) Pulmonary nodule Insomnia Chronic respiratory failure COPD (chronic obstructive pulmonary disease) Surgical History H/O colonoscopy Family History Father No problems noted. Mother Stroke Social History Housing: House Alcohol intake: never Patient Tobacco Use Status: Never used Tobacco e-Cigarette/Vaping Use: Never Used service: No Current occupational status: retired Cognitive needs: No Hearing needs: No Vision needs: Yes Review of Systems Const Denies daytime sleepiness, Reports difficulty sleeping and Denies night sweats ENT Denies change in voice, Denies lip swelling, Denies mouth pain, Reports nasal congestion, Reports nasal discharge and Denies tongue swelling Card Reports chest pain and Reports dyspnea on exertion Resp Reports cough and Reports dyspnea on exertion GI Reports abdominal pain Musc Denies no additional complaints Neuro Denies Neuro-related abnormal movements Psych Denies no additional complaints Lm/Lymph Denies easy bleeding and Denies lymphadenopathy Aller/Immun Denies lip swelling and Denies tongue swelling Physical Exam Vital Signs: Last Vital Signs Pulse 72 08/13/24 15:05 BP 158/64 H 08/13/24 15:05 Pulse Ox 92 08/13/24 15:05 Oxygen Delivery Method Nasal Cannula 08/13/24 15:05 Oxygen Flow Rate 2 08/13/24 15:05 BMI result Body Mass Index 38.3 Const General: alert Neck Neck: Yes normal visual inspection, Yes full ROM and Yes no lymphadenopathy Chest Chest palpation & inspection: normal inspection of the chest and no tenderness Resp Effort & Inspection: normal respiratory effort Auscultation: diminished lung sounds Cardio Rate: regular rate Rhythm: regular rhythm Heart sounds: S1 normal heart sound present and S2 normal heart sound present GI Palpation (GI): Soft to palpation and Tenderness to palpation present (GI) in the epigastrum Auscultation: normal bowel sounds Skin General skin exam: rashes and/or lesions noted Assessment & Plan Assessment & Plan (1) Pulmonary nodule: Comment: Stable for many years, benign process Code(s): R91.1 - Solitary pulmonary nodule Category: Medical (2) Insomnia: Code(s): G47.00 - Insomnia, unspecified Category: Medical Qualifiers: Insomnia type: primary Qualified Code(s): F51.01 - Primary insomnia (3) Chronic respiratory failure: Comment: Hypoventilation due to morbid obesity, on 24 hours supplemental O2. Patient could not tolerate CPAP, follow-up with pulmonology Code(s): J96.10 - Chronic respiratory failure, unspecified whether with hypoxia or hypercapnia Category: Medical Qualifiers: Respiratory failure complication: hypoxia and hypercapnia Qualified Code(s): J96.11 - Chronic respiratory failure with hypoxia; J96.12 - Chronic respiratory failure with hypercapnia (4) COPD (chronic obstructive pulmonary disease): Code(s): J44.9 - Chronic obstructive pulmonary disease, unspecified Category: Medical Qualifiers: COPD type: chronic bronchitis Chronic bronchitis type: simple Qualified Code(s): J41.0 - Simple chronic bronchitis Plan Continue Anoro 1 inhalation daily. short-acting beta agonist as needed Weight management Continue oxygen continuously 2-2.5 L to keep pox 90-96% decrease PPI reflux diet follow-up in 4-6 months Medications: New omeprazole 20 mg PO DAILY 30 caps 11RF Discontinued omeprazole Discontinued Reason: Doctor's Order 40 mg PO DAILY 30 days 30 caps 3RF Coding Level of Care Code Est Pt Level 4 (80119) Complex EM visit Add On G2211 Diagnoses Pulmonary nodule R91.1 Primary insomnia F51.01 Insomnia type: primary Chronic respiratory failure with hypoxia and hypercapnia J96.11; J96.12 Respiratory failure complication: hypoxia and hypercapnia Simple chronic bronchitis J41.0 COPD type: chronic bronchitis Chronic bronchitis type: simple Time Spent (min) 17
== END 2024-08-13 15:41 | disposition home or self-care (01) ==
LOC: HO.HPS 15:00
PROVIDERS: PCP Internal Medicine; Visit Provider Hospitalist
DX: R91.1 Solitary pulmonary nodule (principal); F51.01 Primary insomnia; J96.11 Chronic respiratory failure with hypoxia; J96.12 Chronic respiratory failure with hypercapnia; J41.0 Simple chronic bronchitis
CPT/HCPCS: 99214; G2211

== ENCOUNTER → 2024-08-13 14:59 | Outpatient (BNVA) | payer MEDICARE, SELFPAY | PROVIDERS: PCP Internal Medicine; Visit Provider Hospitalist | DX: J96.11 Chronic respiratory failure with hypoxia (principal); J96.12 Chronic respiratory failure with hypercapnia; J44.1 Chronic obstructive pulmonary disease with (acute) exacerbation; F51.01 Primary insomnia; R91.1 Solitary pulmonary nodule; Z99.81 Dependence on supplemental oxygen | CPT/HCPCS: 99212 ==

== ENCOUNTER 2024-10-21 09:30 | Outpatient (REF) | payer MEDICARE, SELFPAY ==
--- OUTSIDE RECORDS SUMMARY | 2024-10-21 10:34 | XMS_ITS | Encounter Summary ---
Author Organization [facility] Address [address] [place] [address] Care Team Providers Care Zigzag Elastic Attacher Name Role Phone Yecenia Lerma MD Primary Care Provider Unavaila Richard Everett DO Unavailable Unavailabl e Encounter Details Date Type Department Care Team Description 10/06/2018 Release of Information Medical Records [address] [place] [id number] Abstract, Provider Social History Tobacco Use Types [...] on filedocumented in this encounter Care Teams Zigzag Elastic Attacher Relationship Specialty Start Date End Date Yecenia Lerma MD PCP - General Internal Medicine 03/17/18 Richard Jackson DO 01/23/18 documented as of this encounter
--- OUTSIDE RECORDS SUMMARY | 2024-10-21 10:34 | XMS_ITS | Clinical Summary ---
Author Organization [facility] it Address [address] [place] [address] Care Team Providers Care Senior Embedded Software Engineer Name Role Phone Yecenia Lerma MD Primary Care Provider [phone] Social History Tobacco Use Types Packs/Day Years [...] nts (1 - 1-dose 75+ series) 07/25/2018 Falls Risk Assessment 01/26/2022 Osteoporosis Screening (Bone Density Screening) 01/26/2022 Social Influencers of Health Screening 01/26/2022 COVID-19 Vaccine (1 - 2023-2 5 season) 2023 Depression Screening 02/25/2024 Influenza Vaccine (#1) 2024 HIB Vaccines Aged Out No longer [...] age to complete this topic Care Teams Senior Embedded Software Engineer Relationship Specialty Start Date End Date Yecenia Lerma MD PCP - General Internal Medicine 03/17/18
--- OUTSIDE RECORDS SUMMARY | 2024-10-21 10:34 | XMS_ITS | Encounter Summary ---
Author Organization [facility] Address [address] [place] [address] Care Team Providers Care Police Matron Name Role Phone Yecenia Lerma MD Primary Care Provider Richard Unger DO Unavailable Unavailabl e Reason for Visit * Reason Onset Date Comments Note, Other 06/25/2018 Encounter Details Date Type Department Care Team Description 06/25/2018 Telephone Pulmonology - [address] [place] [id number] Luke Grajeda MD Note, Other Social History Tobacco Use [...] on filedocumented in this encounter Care Teams Police Matron Relationship Specialty Start Date End Date Yecenia Lerma MD PCP - General Internal Medicine 03/17/18 Richard Jackson DO 01/23/18 documented as of this encounter
--- OUTSIDE RECORDS SUMMARY | 2024-10-21 10:34 | XMS_ITS | Clinical Summary ---
Author Organization [facility] Address [address] [place] [address] Care Team Providers Care Teacher Tutor Name Role Phone Yecenia Lerma MD Primary [...] 1 Cap by mouth daily. 0 Active [place]-3 Fatty Acids (FISH OIL) 600 MG Cap [...] BMI CHECK/ADVISE 02/25/2024 09/21/2018, 06/04/2018, 05/01/2018 INFLUENZA (#1) 2024 Care Teams Teacher Tutor Relationship Specialty Start Date End Date Yecenia Lerma MD PCP - General Internal Medicine 03/17/18 Richard Jackson DO 01/23/18
--- OUTSIDE RECORDS SUMMARY | 2024-10-21 10:34 | XMS_ITS | Encounter Summary ---
Author Organization [facility] Address [address] [place] [address] Care Team Providers Care Layout Operator Name Role Phone Jam Mason MD Primary Care Provider [phone] Yecenia Lerma MD Primary Care Provider Unavaila ble Richard Jackson DO Unavailable Unavailabl e Encounter Details Date Type Department Care Team Description 03/01/2018 [facility] Medical Records [address] [place] [id number] Luke Grajeda MD Social History Tobacco Use [...] on filedocumented in this encounter Care Teams Layout Operator Relationship Specialty Start Date End Date Jam Mason MD PCP - General Internal Medicine 01/23/18 03/16/18 Yecenia Lerma MD PCP - General Internal Medicine 03/17/18 Richard Jackson DO 01/23/18 documented as of this encounter
[2024-10-21 13:20] LABS: MANUAL DIFF FLAG NO
[2024-10-21 13:34] LABS: Hemoglobin A1C 189.8509 umol/L; Total Hemoglobin (HGBA1C) 2755.7165 umol/L
[2024-10-21 13:40] LABS: Hematocrit 34.7 % (37.0-47.0); Hemoglobin 10.5 g/dl (12.0-16.0); Imm Gran Abs Auto 0.02 X10*3/uL (0.00-0.03); Imm Gran Pct Auto 0.3 % (0.0-0.4); Lymphocytes Absolute Auto 1.2 X10*3/uL (1.2-4.9); Mean Corpuscular HGB Conc 30.3 g/dl (31.0-35.0); Mean Corpuscular Hemoglobin 28.4 pg (27.0-33.0); Mean Corpuscular Volume 93.8 fL (80.0-98.0); NRBC Abs Auto 0.000 X10*3/uL (0.0-0.012); NRBC Pct Auto 0.0 /100WBC (0.0-0.2); Platelet Count 191 X10*3/uL (160-400); Red Blood Count 3.70 X10*6/uL (4.20-5.50); White Blood Count 7.0 X10*3/uL (4.8-10.8)
[2024-10-21 13:48] LABS: Alanine Aminotransferase 16 U/L (0-31); Albumin Level 3.7 g/dL (3.5-5.0); Alkaline Phosphatase 70 U/L (39-117); Anion Gap 12 (12-20); Aspartate Amino Transferase 18 U/L (5-31); Blood Urea Nitrogen 20 mg/dL (9-16); Calcium 8.1 mg/dL (8.4-10.2); Carbon Dioxide 33 mmol/L (22-29); Chloride 99 mmol/L (96-108); Cholesterol 204 mg/dL (<200); Estimated Glomerular Filt Rate 49; HDL Cholesterol 41 mg/dL (>40); Potassium 4.6 mmol/L (3.3-5.1); Sodium 139 mmol/L (135-145); Total Protein 7.1 g/dL (6.5-8.0); Triglycerides 180 mg/dL (<150)
== END 2024-10-21 09:31 | disposition home or self-care (01) ==
LOC: HO.HMGCLDS 09:30
PROVIDERS: PCP Internal Medicine; Visit Provider Internal Medicine
DX: I12.9 Hypertensive chronic kidney disease with stage 1 through stage 4 chronic kidney disease, or unspecified chronic kidney disease (principal); N18.30 Chronic kidney disease, stage 3 unspecified; E11.9 Type 2 diabetes mellitus without complications; Z13.1 Encounter for screening for diabetes mellitus
CPT/HCPCS: 36415; 80053; 80061; 82043; 82570; 83036; 85025

== ENCOUNTER 2024-10-29 12:43 | Outpatient (AMB) | payer MEDICARE, SELFPAY ==
--- NOTE | 2024-10-29 12:46 | A.OFFPC_ITS ---
Vital Signs 10/29/24 12:47 Height 5 ft 3 in Weight 215 lb BMI 38.1 BP 136/70 Blood Pressure Location Lt brachial Position Sitting Respiration 17 Pulse 75 Pulse Source Pulse Oximeter Temp 98.5 F Temp Source Oral Pulse Oximetry (%) 93 Oxygen Delivery Method Nasal Cannula Intake Visit Reasons: 3m follow up reschedule Intake Note: Pt is here today for 3 months follow up visit. Allergies No Known Allergies Allergy (Verified 10/29/24 12:47) Medication List - Last Reconciled 10/29/24 by Yecenia Lerma MD albuterol sulfate 0.63 mg (3 mL) inhalation Q6H albuterol sulfate 90 mcg/actuation 2 puffs inhalation Q6H PRN atorvastatin 40 mg PO DAILY blood sugar diagnostic ([employer] Ultra Test strips) 1 bid calcitriol 0.25 mcg PO DAILY furosemide 40 mg PO DAILY levothyroxine 125 mcg PO DAILY lisinopril 10 mg PO DAILY metformin ER 1,500 mg (2 x 750 mg) PO DAILY metoprolol succinate ER 50 mg PO DAILY miscellaneous medical supply 1 pair diabetic shoes as directed; nebulizers As directed omeprazole 20 mg PO DAILY Oxygen Home Use As directed umeclidinium-vilanterol 62.5-25 mcg/actuation (Anoro Ellipta) 1 inh inhalation DAILY Tobacco use date assessed: 10/29/24 Fall risk assessment: No Falls in past year Last assessed Fall Risk: 10/29/24 Dental Screening Dental Screen Date: 10/29/24 Did you have a dental visit in the last 12 months?: No Did you have a dental problem in the last 6 months where you did not have access to dental care?: No Was dental information given to patient?: Patient declined HPI 3m follow up reschedule HPI Details Pt presents for DM 2, HTN, hyperlipid, stable on meds. COPD stable on Anoro patient remains on 24 hour supplemental O2 for hypoxia. Patient reports intermittent dry cough, irritation in back of her throat. worse at night. She denies PND orthopnea worsening of baseline dyspnea on exertion chest pain palpitations. [facility] Medical History CKD (chronic kidney disease) stage 3, GFR 30-59 ml/min Chest pain Annual physical exam Hypoxia Hypothyroid Hyperlipidemia Overweight DM type 2 (diabetes mellitus, type 2) Pulmonary nodule Insomnia Chronic respiratory failure COPD (chronic obstructive pulmonary disease) Surgical History H/O colonoscopy Family History Father No problems noted. Mother Stroke Social History Housing: House Alcohol intake: never Patient Tobacco Use Status: Never used Tobacco e-Cigarette/Vaping Use: Never Used service: No Current occupational status: retired Cognitive needs: No Hearing needs: No Vision needs: Yes Questionnaire PHQ-9 Over the last 2 weeks, how often have you been bothered by any of the following problems? 1. Little interest or pleasure in doing things: nearly every day 2. Feeling down, depressed, or hopeless: not at all 3. Trouble falling or staying asleep, or sleeping too much: several days 4. Feeling tired or having little energy: several days 5. Poor appetite or overeating: not at all 6. Feeling bad about yourself - or that you are a failure or have let yourself or your family down: not at all 7. Trouble concentrating on things, such as reading the newspaper or watching television: not at all 8. Moving or speaking so slowly that other people could have noticed. Or the opposite - being so fidgety or restless that you have been moving around a lot more than usual: not at all 9. Thoughts that you would be better off or of hurting yourself in some way: not at all Total score: 5 Depression Screening Interpretation: Negative Depression Screening Done: Yes 67537 - PHQ-9 Billing: Yes Source: Developed by Drs. Srinivasa Hassan, Oriana Mercado, Florentin Díaz and colleagues, with an educational caryl from [employer]. Thrive Questionnaire Date Thrive assessed: 10/29/24 I am a: Parent/Caregiver What is your living situation today?: I have a steady place to live Within the past 12 months, did the food you bought not last and you didn't have the money to get more?: I choose not to answer this question Within the past 12 months, did you worry whether your food would run out before you got money to buy more?: I choose not to answer this question Do you have trouble paying for medicines?: No Do you have trouble getting transportation to medical appointments?: No Do you have trouble paying your heating and electricity bill?: No Do you have trouble taking care of your child, family member or friend?: No Do you have trouble with day-to-day activities such as bathing, preparing meals, shopping, managing finances, etc.?: I choose not to answer this question Are you currently unemployed and looking for a job?: No Are you interested in more education?: No Please select the resources that you would like help with: None Currently or been in a relationship where the following occur: No concerns reported THRIVE Score: 0 AUDIT C Alcohol Use Questionnaire (AUDIT-C) 1. How often do you have a drink containing alcohol?: Monthly or less 2. How many drinks containing alcohol do you have on a typical day when you are drinking?: 1 or 2 3. How often do you have six or more drinks on one occasion?: Never Total Score: 1 UNRULY-7 AMB Questionnaire UNRULY-7 Date UNRULY - 7 assessed: 10/29/24 Feeling nervous, anxious, or on edge: 0 = Not at all Not being able to stop or control worryin = Not at all Worrying too much about different things: 0 = Not at all Trouble relaxin = Not at all Being so restless that it is hard to sit still: 0 = Not at all Becoming easily annoyed or irritable: 0 = Not at all Feeling afraid as if something awful might happen: 0 = Not at all Total UNRULY-7 score (0-4 normal; 5-9 mild; 10-14 moderate; 15-21 severe): 0 Source: Developed by Drs. Srinivasa Hassan, Oriana Mercado, Florentni Díaz and colleagues, with an educational caryl from [employer]. UNRULY-7 Assessment Billing UNRULY-7 Assessment Tool: UNRULY-7 Assessment 67633 Review of Systems Const All systems reviewed & are unremarkable except as noted in HPI and below Eyes Reports no additional complaints ENT Reports no additional complaints Card Reports no additional complaints Resp Reports no additional complaints GI Reports no additional complaints Reports no additional complaints Physical exam (Primary Care) Vital Signs: Last Vital Signs Temp 98.5 F 10/29/24 12:47 Pulse 75 10/29/24 12:47 Resp 17 10/29/24 12:47 BP 136/70 10/29/24 12:47 Pulse Ox 93 10/29/24 12:47 Oxygen Delivery Method Nasal Cannula 10/29/24 12:47 BMI result Body Mass Index 38.1 Tobacco/Smoking Status: Tobacco use Status Tobacco use date assessed 10/29/24 10/29/24 12:48 Patient Tobacco Use Status Never used Tobacco 10/29/24 12:46 e-Cigarette/Vaping Use Never Used 10/29/24 12:46 PHQ-9: PHQ-9 Score PHQ-9: Total score 5 10/29/24 12:58 Depression Screening Interpretation: Negative Thrive Assessment: Date of Thrive Assessment Date Thrive assessed 10/29/24 10/29/24 12:48 Currently or been in a relationship where the following occur: No concerns reported Const General: no acute distress HENMT Head: Yes normal to inspection Face and sinus: Yes normal facial exam Mouth: Normal oral and palatal mucosa present Eyes General: appearance normal, both eyes and all related structures Neck Neck: Yes no lymphadenopathy and Yes supple Resp Effort & Inspection: normal respiratory effort Auscultation: clear to auscultation bilaterally Cardio Rhythm: regular rhythm Heart sounds: S1 normal heart sound present and S2 normal heart sound present GI Inspection: Yes normal to inspection Coding Level of Care Code Est Pt Level 4 (54205) Diagnoses CKD (chronic kidney disease) stage 3, GFR 30-59 ml/min N18.30 DM type 2 (diabetes mellitus, type 2) E11.9 Simple chronic bronchitis J41.0 COPD type: chronic bronchitis Chronic bronchitis type: simple Hypertension I10 Additional Codes UNRULY-7 Assessment Billing - UNRULY-7 Assessment Tool: UNRULY-7 Assessment 13829 ([id number]) PHQ-9 - 52516 - PHQ-9 Billing: Yes ([id number]) Assessment & Plan Assessment & Plan (1) CKD (chronic kidney disease) stage 3, GFR 30-59 ml/min: Code(s): N18.30 - Chronic kidney disease, stage 3 unspecified Category: Medical Plan: Avoid nephrotoxins monitor renal function (2) DM type 2 (diabetes mellitus, type 2): Comment: hypoglycemia on glipizide, poorly controlled due to noncompliance with the diet Code(s): E11.9 - Type 2 diabetes mellitus without complications Category: Medical Plan: A1c is 8.5, ADA diet increase exercise weight loss discussed with the patient. Increase metformin to 1500 mg. (3) COPD (chronic obstructive pulmonary disease): Code(s): J44.9 - Chronic obstructive pulmonary disease, unspecified Category: Medical Qualifiers: COPD type: chronic bronchitis Chronic bronchitis type: simple Qualified Code(s): J41.0 - Simple chronic bronchitis Plan: Continue Anoro (4) Hypertension: Code(s): I10 - Essential (primary) hypertension Category: Medical Plan: Change lisinopril to valsartan 160 mg check basic metabolic panel in 2 weeks follow-up in 1 month Orders: Orders Basic Metabolic Panel 2 Weeks N18.30 - Chronic kidney disease, stage 3 unspecified Medications: New metformin ER 1,500 mg (2 x 750 mg) PO DAILY 180 tabs 1RF valsartan 160 mg PO DAILY 90 tabs 2RF Discontinued metformin Discontinued Reason: Doctor's Order 850 mg PO DAILY 90 tabs 3RF lisinopril Discontinued Reason: Doctor's Order 10 mg PO DAILY 90 tabs 3RF
[2024-10-29 12:47] VITALS: BP 136/70; PULSE 75; RESP 17; TEMP 36.9; O2SAT 93; BMI 38.1
--- OUTSIDE RECORDS SUMMARY | 2024-10-29 12:57 | XMS_ITS | Clinical Summary ---
Author Organization [facility] it Address [address] [place] [address] Care Team Providers Care Tube Worker Name Role Phone Yecenia Lerma MD Primary Care Provider [phone] Social History Tobacco Use Types Packs/Day Years [...] 01/26/2022 Social Influencers of Health Screening 01/26/2022 Depression Screening 02/25/2024 COVID-19 Vaccine (2023-2 5 season) 2024 Influenza Vaccine (#1) 2024 HIB Vaccines Aged [...] age to complete this topic Care Teams Tube Worker Relationship Specialty Start Date End Date Yecenia Lerma MD PCP - General Internal Medicine 03/17/18
== END 2024-10-29 13:56 | disposition home or self-care (01) ==
LOC: HO.HMCC 12:44
PROVIDERS: PCP Internal Medicine; Visit Provider Internal Medicine
DX: N18.30 Chronic kidney disease, stage 3 unspecified (principal); E11.9 Type 2 diabetes mellitus without complications; J41.0 Simple chronic bronchitis; I10 Essential (primary) hypertension

== ENCOUNTER → 2024-10-29 12:43 | Outpatient (BNVA) | payer MEDICARE, SELFPAY | PROVIDERS: PCP Internal Medicine; Visit Provider Internal Medicine | DX: E11.22 Type 2 diabetes mellitus with diabetic chronic kidney disease (principal); I12.9 Hypertensive chronic kidney disease with stage 1 through stage 4 chronic kidney disease, or unspecified chronic kidney disease; N18.30 Chronic kidney disease, stage 3 unspecified; J41.0 Simple chronic bronchitis; E78.5 Hyperlipidemia, unspecified; Z99.81 Dependence on supplemental oxygen; Z79.899 Other long term (current) drug therapy | CPT/HCPCS: 96127; 99212 ==

== ENCOUNTER 2024-12-01 10:07 | Outpatient (REF) | payer MEDICARE, SELFPAY ==
[2024-12-01 13:50] LABS: Anion Gap 12 (12-20); Blood Urea Nitrogen 26 mg/dL (9-16); Calcium 9.0 mg/dL (8.4-10.2); Carbon Dioxide 38 mmol/L (22-29); Chloride 95 mmol/L (96-108); Estimated Glomerular Filt Rate 43; Potassium 5.1 mmol/L (3.3-5.1); Sodium 140 mmol/L (135-145)
== END 2024-12-01 10:08 | disposition home or self-care (01) ==
LOC: HO.HMGCLDS 10:07
PROVIDERS: PCP Internal Medicine; Visit Provider Internal Medicine
DX: I12.9 Hypertensive chronic kidney disease with stage 1 through stage 4 chronic kidney disease, or unspecified chronic kidney disease (principal); E11.22 Type 2 diabetes mellitus with diabetic chronic kidney disease; N18.30 Chronic kidney disease, stage 3 unspecified
CPT/HCPCS: 36415; 80048

== ENCOUNTER 2024-12-09 12:02 | Outpatient (AMB) | payer MEDICARE, SELFPAY ==
[2024-12-09 12:32] VITALS: BP 140/70; PULSE 83; RESP 18; TEMP 36.8; O2SAT 94; BMI 37.9
--- NOTE | 2024-12-09 12:32 | MHC.PC.OV ---
Vital Signs 12/09/24 12:32 Height 5 ft 3 in Weight 214 lb BMI 37.9 BP 140/70 H Blood Pressure Location Lt brachial Position Sitting Respiration 18 Pulse 83 Pulse Source Pulse Oximeter Temp 98.2 F Temp Source Oral Pulse Oximetry (%) 94 Oxygen Delivery Method Nasal Cannula Intake Visit Reasons: 1m follow up Intake Note: Pt is here today for 1 month follow up visit. Allergies lisinopril Adverse Reaction (Intermediate, Verified 12/09/24 13:23) Cough Medication List - Last Reconciled 12/09/24 by Yecenia Lerma MD albuterol sulfate 0.63 mg (3 mL) inhalation Q6H albuterol sulfate 90 mcg/actuation 2 puffs inhalation Q6H PRN atorvastatin 40 mg PO DAILY blood sugar diagnostic ([employer] Ultra Test strips) 1 bid calcitriol 0.25 mcg PO DAILY furosemide 40 mg PO DAILY levothyroxine 125 mcg PO DAILY metformin ER 1,500 mg (2 x 750 mg) PO DAILY metoprolol succinate ER 50 mg PO DAILY miscellaneous medical supply 1 pair diabetic shoes as directed; nebulizers As directed omeprazole 20 mg PO DAILY Oxygen Home Use As directed umeclidinium-vilanterol 62.5-25 mcg/actuation (Anoro Ellipta) 1 inh inhalation DAILY valsartan 160 mg PO DAILY Tobacco use date assessed: 10/29/24 Dental Screening Dental Screen Date: 10/29/24 HPI 1m follow up HPI Details Pt presents for f/u HTN, hyperlipid, DM2, stable on meds. Patient reports cough resolved since patient has stopped taking lisinopril. She has been tolerating valsartan. Patient reports a blood glucose fluctuating between 140-160 depending on her diet patient has been struggling to follow ADA diet. She has not been physically active. [facility] Medical History CKD (chronic kidney disease) stage 3, GFR 30-59 ml/min Chest pain Annual physical exam Hypoxia Hypothyroid Hyperlipidemia Overweight DM type 2 (diabetes mellitus, type 2) Pulmonary nodule Insomnia Chronic respiratory failure COPD (chronic obstructive pulmonary disease) Surgical History H/O colonoscopy Family History Father No problems noted. Mother Stroke Social History Housing: House Alcohol intake: never Patient Tobacco Use Status: Never used Tobacco e-Cigarette/Vaping Use: Never Used service: No Current occupational status: retired Cognitive needs: No Hearing needs: No Vision needs: Yes Questionnaire Thrive Questionnaire Date Thrive assessed: 10/29/24 I am a: Parent/Caregiver What is your living situation today?: I have a steady place to live Within the past 12 months, did the food you bought not last and you didn't have the money to get more?: I choose not to answer this question Within the past 12 months, did you worry whether your food would run out before you got money to buy more?: I choose not to answer this question Do you have trouble paying for medicines?: No Do you have trouble getting transportation to medical appointments?: No Do you have trouble paying your heating and electricity bill?: No Do you have trouble taking care of your child, family member or friend?: No Do you have trouble with day-to-day activities such as bathing, preparing meals, shopping, managing finances, etc.?: I choose not to answer this question Are you currently unemployed and looking for a job?: No Are you interested in more education?: No Please select the resources that you would like help with: None Currently or been in a relationship where the following occur: No concerns reported THRIVE Score: 0 UNRULY-7 AMB Questionnaire UNRULY-7 Date UNRULY - 7 assessed: 10/29/24 Source: Developed by Drs. Srinivasa Hassan, Oriana Mercado, Florentin Díaz and colleagues, with an educational caryl from [employer] Review of Systems Const All systems reviewed & are unremarkable except as noted in HPI and below Eyes Reports no additional complaints ENT Reports no additional complaints Card Reports no additional complaints Resp Reports no additional complaints GI Reports no additional complaints Reports no additional complaints Physical exam (Primary Care) Vital Signs: Last Vital Signs Temp 98.2 F 12/09/24 12:32 Pulse 83 12/09/24 12:32 Resp 18 12/09/24 12:32 BP 140/70 H 12/09/24 12:32 Pulse Ox 94 12/09/24 12:32 Oxygen Delivery Method Nasal Cannula 12/09/24 12:32 BMI result Body Mass Index 37.9 Tobacco/Smoking Status: Tobacco use Status Tobacco use date assessed 10/29/24 12/09/24 12:33 Patient Tobacco Use Status Never used Tobacco 12/09/24 12:33 e-Cigarette/Vaping Use Never Used 12/09/24 12:33 Thrive Assessment: Date of Thrive Assessment Date Thrive assessed 10/29/24 12/09/24 12:33 Currently or been in a relationship where the following occur: No concerns reported Const General: no acute distress HENMT Head: Yes normal to inspection Eyes General: appearance normal, both eyes and all related structures Resp Effort & Inspection: normal respiratory effort Auscultation: diminished lung sounds Cardio Rhythm: regular rhythm Heart sounds: S1 normal heart sound present and S2 normal heart sound present GI Palpation (GI): Soft to palpation Extrem General: Yes no clubbing, cyanosis or edema Coding Level of Care Code Est Pt Level 4 (05243) Diagnoses Hypertension I10 DM type 2 (diabetes mellitus, type 2) E11.9 CKD (chronic kidney disease) stage 3, GFR 30-59 ml/min N18.30 Assessment & Plan Assessment & Plan (1) Hypertension: Code(s): I10 - Essential (primary) hypertension Category: Medical Plan: At 2.5 mg of amlodipine for better blood pressure control. Continue valsartan and metoprolol (2) DM type 2 (diabetes mellitus, type 2): Comment: hypoglycemia on glipizide, poorly controlled due to noncompliance with the diet, patient declined GLP 1 agonists Code(s): E11.9 - Type 2 diabetes mellitus without complications Category: Medical Plan: ADA diet increase exercise weight loss discussed with the patient. Jardiance 10 mg daily will be added if her insurance covers the medication (3) CKD (chronic kidney disease) stage 3, GFR 30-59 ml/min: Code(s): N18.30 - Chronic kidney disease, stage 3 unspecified Category: Medical Plan: Avoid nephrotoxins maintain good hydration discussed with the patient. Jardiance will be tried for renal protection, follow-up in 1 month with a fasting labs before Orders: Orders Comprehensive [place]. Panel Fast 1 Month E11.9 - Type 2 diabetes mellitus without complications, I10 - Essential (primary) hypertension, N18.30 - Chronic kidney disease, stage 3 unspecified Lipid Panel 1 Month E11.9 - Type 2 diabetes mellitus without complications, I10 - Essential (primary) hypertension, N18.30 - Chronic kidney disease, stage 3 unspecified Hemoglobin A1c 1 Month E11.9 - Type 2 diabetes mellitus without complications, I10 - Essential (primary) hypertension, N18.30 - Chronic kidney disease, stage 3 unspecified Complete Blood Count Auto Diff 1 Month E11.9 - Type 2 diabetes mellitus without complications, I10 - Essential (primary) hypertension, N18.30 - Chronic kidney disease, stage 3 unspecified Medications: New empagliflozin (Jardiance) 10 mg PO DAILY 90 tabs 0RF amlodipine 2.5 mg PO DAILY 90 tabs 0RF
== END 2024-12-09 13:48 | disposition home or self-care (01) ==
LOC: HO.HMCC 12:03
PROVIDERS: PCP Internal Medicine; Visit Provider Internal Medicine
DX: I10 Essential (primary) hypertension (principal); E11.9 Type 2 diabetes mellitus without complications; N18.30 Chronic kidney disease, stage 3 unspecified

== ENCOUNTER → 2024-12-09 12:02 | Outpatient (BNVA) | payer MEDICARE, SELFPAY | PROVIDERS: PCP Internal Medicine; Visit Provider Internal Medicine | DX: E11.22 Type 2 diabetes mellitus with diabetic chronic kidney disease (principal); E78.5 Hyperlipidemia, unspecified; I12.9 Hypertensive chronic kidney disease with stage 1 through stage 4 chronic kidney disease, or unspecified chronic kidney disease; N18.30 Chronic kidney disease, stage 3 unspecified; Z79.899 Other long term (current) drug therapy | CPT/HCPCS: 99212 ==

== ENCOUNTER 2025-01-07 09:48 | Outpatient (REF) | payer MEDICARE, SELFPAY ==
--- OUTSIDE RECORDS SUMMARY | 2025-01-07 11:02 | XMS_ITS | Clinical Summary ---
Author Organization [facility] it Address [address] [place] [address] Care Team Providers Care Jewel Grinder Name Role Phone Yecenia Lerma MD Primary Care Provider [phone] Social History Tobacco Use Types Packs/Day Years [...] Screening 01/26/2022 Depression Screening 02/25/2024 COVID-19 Vaccine ( - 2024-2 6 season) 2024 Influenza Vaccine (#1) 2024 HIB [...] age to complete this topic Care Teams Jewel Grinder Relationship Specialty Start Date End Date Yecenia Lerma MD PCP - General Internal Medicine 03/17/18
[2025-01-07 13:12] LABS: MANUAL DIFF FLAG NO
[2025-01-07 13:26] LABS: Hematocrit 35.0 % (37.0-47.0); Hemoglobin 10.7 g/dl (12.0-16.0); Imm Gran Abs Auto 0.02 X10*3/uL (0.00-0.03); Imm Gran Pct Auto 0.2 % (0.0-0.4); Lymphocytes Absolute Auto 1.6 X10*3/uL (1.2-4.9); Mean Corpuscular HGB Conc 30.6 g/dl (31.0-35.0); Mean Corpuscular Hemoglobin 28.8 pg (27.0-33.0); Mean Corpuscular Volume 94.1 fL (80.0-98.0); NRBC Abs Auto 0.000 X10*3/uL (0.0-0.012); NRBC Pct Auto 0.0 /100WBC (0.0-0.2); Platelet Count 200 X10*3/uL (160-400); Red Blood Count 3.72 X10*6/uL (4.20-5.50); White Blood Count 8.3 X10*3/uL (4.8-10.8)
[2025-01-07 13:43] LABS: Alanine Aminotransferase 12 U/L (0-31); Albumin Level 4.1 g/dL (3.5-5.0); Alkaline Phosphatase 72 U/L (39-117); Anion Gap 13 (12-20); Aspartate Amino Transferase 19 U/L (5-31); Blood Urea Nitrogen 34 mg/dL (9-16); Calcium 8.4 mg/dL (8.4-10.2); Carbon Dioxide 35 mmol/L (22-29); Chloride 99 mmol/L (96-108); Cholesterol 190 mg/dL (<200); Estimated Glomerular Filt Rate 37; HDL Cholesterol 41 mg/dL (>40); Potassium 4.8 mmol/L (3.3-5.1); Sodium 142 mmol/L (135-145); Total Protein 7.5 g/dL (6.5-8.0); Triglycerides 187 mg/dL (<150)
== END 2025-01-07 09:49 | disposition home or self-care (01) ==
LOC: HO.HMGCLDS 09:48
PROVIDERS: PCP Internal Medicine; Visit Provider Internal Medicine
DX: I12.9 Hypertensive chronic kidney disease with stage 1 through stage 4 chronic kidney disease, or unspecified chronic kidney disease (principal); E11.22 Type 2 diabetes mellitus with diabetic chronic kidney disease; N18.30 Chronic kidney disease, stage 3 unspecified
CPT/HCPCS: 36415; 80053; 80061; 83036; 85025

== ENCOUNTER 2025-01-11 12:48 | Outpatient (AMB) | payer MEDICARE, SELFPAY ==
[2025-01-11 12:52] VITALS: BP 138/64; PULSE 65; RESP 17; O2SAT 94; BMI 37.9
--- NOTE | 2025-01-11 12:52 | A.OFFPC_ITS ---
Vital Signs 01/11/25 12:52 Height 5 ft 3 in Weight 214 lb BMI 37.9 BP 138/64 Blood Pressure Location Lt brachial Position Sitting Respiration 17 Pulse 65 Pulse Source Pulse Oximeter Pulse Oximetry (%) 94 Oxygen Delivery Method Nasal Cannula Intake Visit Reasons: 1 month follow up Intake Note: Pt is here today for 1 month follow up visit. Allergies lisinopril Adverse Reaction (Intermediate, Verified 01/11/25 12:58) Cough Medication List - Last Reconciled 01/11/25 by Yecenia Lerma MD albuterol sulfate 0.63 mg (3 mL) inhalation Q6H albuterol sulfate 90 mcg/actuation 2 puffs inhalation Q6H PRN amlodipine 2.5 mg PO DAILY atorvastatin 40 mg PO DAILY blood sugar diagnostic ([employer] Ultra Test strips) 1 bid calcitriol 0.25 mcg PO DAILY furosemide 40 mg PO DAILY Jardiance (empagliflozin) 25 mg PO DAILY NS levothyroxine 125 mcg PO DAILY metformin ER 1,500 mg (2 x 750 mg) PO DAILY metoprolol succinate ER 50 mg PO DAILY miscellaneous medical supply 1 pair diabetic shoes as directed; nebulizers As directed omeprazole 20 mg PO DAILY Oxygen Home Use As directed umeclidinium-vilanterol 62.5-25 mcg/actuation (Anoro Ellipta) 1 inh inhalation DAILY valsartan 160 mg PO DAILY Tobacco use date assessed: 01/11/25 Dental Screening Dental Screen Date: 10/29/24 HPI 1 month follow up HPI Details Patient presents for the follow-up hypertension type 2 diabetes hypothyroidism COPD with chronic hypoxia on supplemental O2, [facility] Medical History CKD (chronic kidney disease) stage 3, GFR 30-59 ml/min Chest pain Annual physical exam Hypoxia Hypothyroid Hyperlipidemia Overweight DM type 2 (diabetes mellitus, type 2) Pulmonary nodule Insomnia Chronic respiratory failure COPD (chronic obstructive pulmonary disease) Surgical History H/O colonoscopy Family History Father No problems noted. Mother Stroke Social History Housing: House Alcohol intake: never Patient Tobacco Use Status: Never used Tobacco e-Cigarette/Vaping Use: Never Used service: No Current occupational status: retired Cognitive needs: No Hearing needs: No Vision needs: Yes Questionnaire Thrive Questionnaire Date Thrive assessed: 10/29/24 I am a: Parent/Caregiver What is your living situation today?: I have a steady place to live Within the past 12 months, did the food you bought not last and you didn't have the money to get more?: I choose not to answer this question Within the past 12 months, did you worry whether your food would run out before you got money to buy more?: I choose not to answer this question Do you have trouble paying for medicines?: No Do you have trouble getting transportation to medical appointments?: No Do you have trouble paying your heating and electricity bill?: No Do you have trouble taking care of your child, family member or friend?: No Do you have trouble with day-to-day activities such as bathing, preparing meals, shopping, managing finances, etc.?: I choose not to answer this question Are you currently unemployed and looking for a job?: No Are you interested in more education?: No Please select the resources that you would like help with: None Currently or been in a relationship where the following occur: No concerns reported THRIVE Score: 0 UNRULY-7 AMB Questionnaire UNRULY-7 Date UNRULY - 7 assessed: 10/29/24 Source: Developed by Drs. Srinivasa Hassan, Oriana Mercado, Florentin Díaz and colleagues, with an educational caryl from [employer]. Review of Systems Const All systems reviewed & are unremarkable except as noted in HPI and below ENT Reports no additional complaints Card Reports no additional complaints Resp Reports no additional complaints GI Reports no additional complaints Reports no additional complaints Physical exam (Primary Care) Vital Signs: Last Vital Signs Pulse 65 01/11/25 12:52 Resp 17 01/11/25 12:52 BP 138/64 01/11/25 12:52 Pulse Ox 94 01/11/25 12:52 Oxygen Delivery Method Nasal Cannula 01/11/25 12:52 BMI result Body Mass Index 37.9 Tobacco/Smoking Status: Tobacco use Status Tobacco use date assessed 01/11/25 01/11/25 13:02 Patient Tobacco Use Status Never used Tobacco 01/11/25 12:52 e-Cigarette/Vaping Use Never Used 01/11/25 12:52 Thrive Assessment: Date of Thrive Assessment Date Thrive assessed 10/29/24 01/11/25 12:52 Currently or been in a relationship where the following occur: No concerns reported Const General: no acute distress HENMT Head: Yes normal to inspection Face and sinus: Yes normal facial exam Eyes General: appearance normal, both eyes and all related structures Neck Neck: Yes supple Resp Effort & Inspection: normal respiratory effort Auscultation: diminished lung sounds Cardio Rhythm: regular rhythm Heart sounds: S1 normal heart sound present and S2 normal heart sound present Extrem Other: 2+ pitting edema bilaterally Coding Level of Care Code Est Pt Level 4 (76481) Diagnoses DM type 2 (diabetes mellitus, type 2) E11.9 CKD (chronic kidney disease) stage 3, GFR 30-59 ml/min N18.30 Simple chronic bronchitis J41.0 COPD type: chronic bronchitis Chronic bronchitis type: simple Hypertension I10 Hypothyroid E03.9 Assessment & Plan Assessment & Plan (1) DM type 2 (diabetes mellitus, type 2): Comment: hypoglycemia on glipizide, poorly controlled due to noncompliance with the diet, patient declined GLP 1 agonists Code(s): E11.9 - Type 2 diabetes mellitus without complications Category: Medical Plan: A1c is 7.9 down from 8.5. ADA diet increase physical activity weight loss discussed with the patient. Increase Jardiance to 25 mg daily continue m etformin and follow-up in 3 months with a fasting labs before (2) CKD (chronic kidney disease) stage 3, GFR 30-59 ml/min: Code(s): N18.30 - Chronic kidney disease, stage 3 unspecified Category: Medical Plan: Avoid nephrotoxins monitor renal function increase Jardiance to 25 mg daily (3) COPD (chronic obstructive pulmonary disease): Code(s): J44.9 - Chronic obstructive pulmonary disease, unspecified Category: Medical Qualifiers: COPD type: chronic bronchitis Chronic bronchitis type: simple Qualified Code(s): J41.0 - Simple chronic bronchitis Plan: Continue inhalers and supplemental O2 (4) Hypertension: Code(s): I10 - Essential (primary) hypertension Category: Medical Plan: Continue current medications follow-up in 3 months with a fasting labs before (5) Hypothyroid: Comment: s/p thyroidectomy for thyroid cancer f/u Dr. Wan Code(s): E03.9 - Hypothyroidism, unspecified Category: Medical Plan: Continue levothyroxine check TSH Orders: Orders Complete Blood Count Auto Diff 3 Months E11.9 - Type 2 diabetes mellitus without complications, J41.0 - Simple chronic bronchitis, N18.30 - Chronic kidney disease, stage 3 unspecified Lipid Panel 3 Months E11.9 - Type 2 diabetes mellitus without complications, J41.0 - Simple chronic bronchitis, N18.30 - Chronic kidney disease, stage 3 unspecified Hemoglobin A1c 3 Months E11.9 - Type 2 diabetes mellitus without complications, J41.0 - Simple chronic bronchitis, N18.30 - Chronic kidney disease, stage 3 unspecified Microalbumin, Random (w Creat) 3 Months E11.9 - Type 2 diabetes mellitus without complications, J41.0 - Simple chronic bronchitis, N18.30 - Chronic kidney disease, stage 3 unspecified TSH reflex Free T4 3 Months E03.9 - Hypothyroidism, unspecified Comprehensive [place]. Panel Fast 3 Months E11.9 - Type 2 diabetes mellitus without complications, J41.0 - Simple chronic bronchitis, N18.30 - Chronic kidney disease, stage 3 unspecified UA w Microscopic 3 Months E11.9 - Type 2 diabetes mellitus without complications, J41.0 - Simple chronic bronchitis, N18.30 - Chronic kidney disease, stage 3 unspecified Medications: New Jardiance (empagliflozin) 25 mg PO DAILY 90 tabs 3RF NS Discontinued empagliflozin (Jardiance) Discontinued Reason: Doctor's Order 10 mg PO DAILY 90 tabs 0RF
--- OUTSIDE RECORDS SUMMARY | 2025-01-12 04:10 | XMS_ITS | Clinical Summary ---
Author Organization [facility] it Address [address] [place] [address] Care Team Providers Care Inspector And Adjuster Golf Club Head Name Role Phone Yecenia Lerma MD Primary Care Provider [phone] Social History Tobacco Use Types Packs/Day Years [...] age to complete this topic Care Teams Inspector And Adjuster Golf [employer] Head Relationship Specialty Start Date End Date Yecenia Lerma MD PCP - General Internal Medicine 03/17/18
== END 2025-01-11 14:45 | disposition home or self-care (01) ==
LOC: HO.HMCC 12:49
PROVIDERS: PCP Internal Medicine; Visit Provider Internal Medicine
DX: E11.9 Type 2 diabetes mellitus without complications (principal); N18.30 Chronic kidney disease, stage 3 unspecified; J41.0 Simple chronic bronchitis; I10 Essential (primary) hypertension; E03.9 Hypothyroidism, unspecified

== ENCOUNTER → 2025-01-11 12:48 | Outpatient (BNVA) | payer MEDICARE, SELFPAY | PROVIDERS: PCP Internal Medicine; Visit Provider Internal Medicine | DX: E11.22 Type 2 diabetes mellitus with diabetic chronic kidney disease (principal); I12.9 Hypertensive chronic kidney disease with stage 1 through stage 4 chronic kidney disease, or unspecified chronic kidney disease; N18.30 Chronic kidney disease, stage 3 unspecified; J41.0 Simple chronic bronchitis; E03.9 Hypothyroidism, unspecified | CPT/HCPCS: 99212 ==